=== PATIENT | female | born 1945 | race Caucasian/White ===

== ENCOUNTER 2017-03-16 11:59 | Inpatient (IN) | payer MEDICARE, OTHER ==
[~2017-03-16] VITALS: Ht 165.1 cm; Wt 110.0 kg
[2017-03-16] MEDS: niCARdipine-NS 0.1MG/ML DRIP 200 ML IV SCH (12:24)
--- NOTE | 2017-03-16 12:31 | ERA ---
ER Documentation Chief Complaint Date/Time DATE: 03/16/17 TIME: 12:23 Chief Complaint pt transfer from [facility] due brain bleed for continuity of care HPI 71 Was transferred to the emergency department from the local [place] facility for a higher level of care for neurosurgical intervention secondary to an intracranial hemorrhage. Patient was in her usual state of health and was last known well approximately 2 days ago which would be 03/14/2017 according to the transfer paperwork. Patient awoke this morning with new right-sided deficits and a headache. Patient was taken to [place] emergency department in [place] where a stroke workup demonstrated a hypertensive intrathalamic hemorrhage. Patient was stabilized on medication for blood pressure and was transferred to our facility for a neurosurgical higher level of care. Prior to transfer, neurosurgical consultation from the [place] facility indicated that there is no acute need for surgical intervention. Upon arrival, I have reviewed the patient's records from the [place] facility and evaluated the patient. ROS All systems reviewed and are negative except as per history of present illness. Allergies Allergies: Coded Allergies: No Known Allergy (Unverified , 08/05/14) PMhx/Soc Hx Cardiac Disorders: Yes (HTN ) Hx Miscellaneous Medical Probl: Yes (SCIATICA ) Hx Alcohol Use: No Hx Substance Use: No Hx Tobacco Use: No FmHx Noncontributory for chief complaint with supportive family at bedside Physical Exam Vitals Vital Signs Date Time Temp Pulse Resp B/P Pulse Ox O2 Delivery O2 Flow Rate FiO2 03/16/17 12:10 98.2 72 18 163/88 99 Physical Exam GENERAL: Patient is an elderly female resting quietly in her gurney. HEENT: Pupils equal, round, and reactive to light. EOMI. There is no scleral icterus. NECK: C-spine is soft and supple, there is no meningismus. There is no cervical lymphadenopathy. LUNGS: Clear to auscultation bilaterally. There are no rales, wheezes or rhonchi. HEART: Regular rate and rhythm, no murmurs, clicks, rubs or gallops. ABDOMEN: Soft, non-tender, non-distended. There are bowel sounds in all four quadrants. No rebound or guarding. EXTREMITIES: There is no peripheral cyanosis or edema. No focal swelling or erythema. NEURO: Patient is awake, alert, oriented. She is somewhat slow to respond. She has a GCS of 15. Her pupils are midrange, equal round and reactive to light. Face demonstrates a right-sided facial droop. Tongue is midline. Gag reflex is maintained. Motor strength is diminished in all 4 extremities but appears to be grossly nonfocal with possible slight right-sided upper extremity weakness when compared to the left. Both lower extremities appear to be normal and nonfocal. Sensory examination is grossly nonfocal bilaterally. SKIN: There is no apparent rash or petechiae. HEME/LYMPHATIC: There is no evidence of excessive bruising or lymphedema. PSYCHIATRIC: The patient does not appear anxious or depressed. Results 24 hrs Current Medications Medications (Trade) Dose Ordered Sig/Roseanna Route PRN Reason Start Time Stop Time Status Last Admin Dose Admin Nicardipine HCl (Cardene Iv) 200 ml @ 50 mls/hr TITRATE IV 03/16/17 12:30 Procedures/MDM Patient was taken to a room, seen and evaluated. Comfort measures were initiated. Diagnostic tests were ordered and reviewed. 3 LEAD RHYTHM STRIP: Normal sinus rhythm without ectopy EK lead EKG interpreted by myself: Rate/rhythm: Normal sinus rhythm [place]/intervals: Normal Ischemia: Nonspecific ST and T-wave changes with no ST elevation Impression: Nonspecific EKG RADIOLOGY: reviewed with the radiologist CONSULTATION: hospitalist was notified for admission., neurosurgical consultation was obtained. A repeat CT head was requested and ordered. REEVALUATION: Blood pressure required IV medications for control MEDICAL DECISION MAKIN-year-old female presents the emergency department with a hypertensive intracranial hemorrhage. Patient will be admitted for blood pressure control, neurosurgical consultation, further observation and management and care. CRITICAL CARE: Time:>35 minutes Patient has a significant chance of clinical deterioration Treatments/Evaluations: Close monitoring and treatment of unstable vital signs, cardiorespiratory, and neurologic status, while maintaining tight balance of fluid, respiratory, and cardiac interventions. Departure Diagnosis: Primary Impression: Intracranial hemorrhage Additional Impression: Hypertension Condition: Critical ALBINO HILTON Mar 16, 2017 12:31
[2017-03-16 13:12] LABS: BASOPHILS % 0.4 % (0.0-2.0); EOSINOPHILS # 0.1 10^3/ul (0.0-0.5); EOSINOPHILS % 1.1 % (0.0-7.0); HEMOGLOBIN 11.1 g/dl (12.0-16.0); LYMPHOCYTES # 2.5 10^3/ul (0.8-2.9); LYMPHOCYTES % 27.9 % (15.0-51.0); MEAN CORPUSCULAR HEMOGLOBIN 27.8 pg (29.0-33.0); MEAN CORPUSCULAR HGB CONC 31.7 g/dl (32.0-37.0); MEAN CORPUSCULAR VOLUME 87.7 fl (82.0-101.0); MEAN PLATELET VOLUME 10.4 fl (7.4-10.4); MONOCYTE # 0.6 10^3/ul (0.3-0.9); MONOCYTES % 6.6 % (0.0-11.0); NEUTROPHILS % 63.6 % (39.0-77.0); PLATELET COUNT 242 10^3/UL (140-415); RED BLOOD COUNT 3.99 10^6/ul (4.20-5.40); RED CELL DISTRIBUTION WIDTH 14.9 % (11.5-14.5); WHITE BLOOD COUNT 8.9 10^3/ul (4.8-10.8)
[2017-03-16 13:24] LABS: ALBUMIN 3.6 g/dl (3.3-4.9); ALBUMIN/GLOBULIN RATIO 1.02; BILIRUBIN,INDIRECT 0.2 mg/dl (0-1.1); BILIRUBIN,TOTAL 0.2 mg/dl (0.2-1.3); CALCIUM 9.1 mg/dl (8.4-10.2); CREATININE 1.27 mg/dl (0.44-1.00); INR 1.08; POTASSIUM 4.2 mmol/L (3.5-5.1); PT RATIO 1.1; TOTAL PROTEIN 7.1 g/dl (6.1-8.1)
--- NOTE | 2017-03-16 15:05 | RADRPT ---
PROCEDURE: CT brain without IV contrast. CLINICAL INDICATION: Weakness/headache. TECHNIQUE: CT examination of the brain was performed on a 64-slice multidetector scanner. The pat ient was examined without IV contrast. Sagittal and coronal reformatted images were made. The imag es were reviewed on a PACS workstation. Total radiation dose: Total CTDIvol: 41 mGy. Total DLP: 665 mGy-cm. One or more of the following dose reduction techniques were used: automated exposure control, adjustment of the mA and/or kV acc ording to patient size, or use of iterative reconstruction technique COMPARISON: None available. FINDINGS: There is 2.2 cm x 0.6 cm x 1.3 cm( AP x CC x TR) acute hemorrhage in the left thalamus with minimal surrounding edema and minimal mass effect to the adjacent midline. There is a tiny acute hemorrhage in the right external capsule. There is mild cerebral atrophy. There is mild periventricular low density white matter changes, lik ricardo microvascular ischemic changes. The stokes/white matter differentiation is well preserved. There is no other abnormal intra-axial high, low density lesion, suggesting tumor, infarct, bleeding, av malformation or inflammatory mass. No subdural or epidural hematoma. The visualized paranasal sinuses and mastoid air cells are clear. The orbits are unremarkable. The calvarium is intact. No scalp abnormalities are seen. IMPRESSION: 1. 2.2 cm x 0.6 cm x 1.3 cm( AP x CC x TR) acute hemorrhage in the left thalamus with minimal surro unding edema and minimal mass effect to the adjacent midline. 2. A tiny acute hemorrhage in the right external capsule. 3. Mild cerebral atrophy. 4. Mild periventricular low density white matter changes, likely microvascular ischemic changes. 5. Critical finding was given to the ER physician, Larissa Dent, 03:00 p.m., 03/16/2017. RPTAT: GG .Ty Alonso MD, Date Time Electronically viewed and signed by .Ty Alonso MD, on 03/16/2017 15:05 .Y/
[2017-03-16] MEDS ORDERED: IBUP-1542 PO (15:09)
[2017-03-16] MEDS ORDERED: LORA0.5T PO (15:09)
[2017-03-16] MEDS ORDERED: ISOS30TA5 PO (15:10)
[2017-03-16] MEDS ORDERED: FAMO20TA18 PO (15:10)
[2017-03-16] MEDS ORDERED: CARV3.1260 PO (15:11)
[2017-03-16] MEDS ORDERED: RANO500T2 PO (15:11)
--- NOTE | 2017-03-16 15:34 | HP ---
Date/Time of Note Date/Time of Note DATE: 03/16/17 TIME: 15:30 Assessment/Plan VTE Prophylaxis VTE Prophylaxis Intervention: contraindicated Assessment/Plan Chief Complaint/Hosp Course 89 yo female with h/o hypertension presenting with spotnaneous acute intracerebral hemorrhage Acute intracerebral hemorrhage: - BP < 160 - Repeat CT for change in neuro exam, serial exams - Hold all blood thinners/anti-platelets - Dr Stark and Dr Fish involved with case Hypertension: - Nicardipine to normotension KAMILA vs CKD: - Trend creatinine ICU care for now Problems: HPI/ROS Admit Date/Time Admit Date/Time Hx of Present Illness 71 yo female wtih h/o hypertension who was transferred from [facility] ED for evaluation of ICH Patient in [facility] until this AM. Sitting on the cough, became minimally responsive to verbal stimuli per family at bedside. Was alert, breathing normally etc, comfortable appearing, but stopped respondign to speech appropriately. Brought to ED and foudn to have ICH without mass effect Transferred to our ED where NCHCT shows the same She complains of headache and b/l buzzing in her ears. Having some expressive aphasia it seems Home meds not clear but per family she takes BP meds only. No blood thinners or anti-platelets. Family also says she is genreally nonadherent to meds ROS Constitutional: improved, no complaints Eyes: no complaints ENT: no complaints Respiratory: no complaints Cardiovascular: no complaints Gastrointestinal: no complaints Genitourinary: no complaints Musculoskeletal: no complaints Skin: no complaints Neurologic: no complaints Endocrine: no complaints Lymphatic: no complaints Psychological: nl mood/affect, no complaints Immunologic: no complaints PMH/Family/Social Past Medical History Medical History: hypertension Past Surgical History Past Surgical Hx: noncontributory Family History Significant Family History: no pertinent family hx Social History Smoking Status: Never smoker Exam/Review of Systems Vital Signs Vitals Vital Signs Date Time Temp Pulse Resp B/P Pulse Ox O2 Delivery O2 Flow Rate FiO2 03/16/17 14:00 70 20 168/83 99 Nasal Cannula 2.0 03/16/17 12:10 98.2 Labs Result Diagram: 03/16/17 1250 03/16/17 1250 Medications Medications Current Medications Nicardipine HCl (Cardene Iv) 200 ml @ 50 mls/hr TITRATE IV Last administered on 03/16/17t 12:24; Admin Dose 50 MLS/HR; Start 03/16/17 at 12:30 SHYAM BAILON MD Mar 16, 2017 15:34
[2017-03-16] MEDS ORDERED: NACL 0.9% 3 ML SYG IV SCH (16:00)
[2017-03-16 20:40] VITALS: TEMP 98.2
--- NOTE | 2017-03-16 23:40 | CONS ---
DATE OF ADMISSION: 03/16/2017 DATE OF CONSULTATION: 03/16/2017 Neurological Consultation Thank you, Dr. Suarez, for your kind referral for evaluation of intracerebral hemorrhage. The patient is a 78-year-old lady with a past medical history of hypertension, not compliant with medications, who was intermittently confused since this morning. The family brought her to the emergency room and CAT scan was done and shows a left thalamic 2.2 cm x 1.3 cm intracerebral hemorrhage with minimal surrounding edema and minimal mass effect, also a tiny acute hemorrhage in the right external capsule was seen. The patient has been stable since admission. She was placed on nicardipine to keep systolic blood pressure below 140. The patient complains of mild headache since the morning. LABORATORY: Shows anemia 11.1 hemoglobin, 35.2, hematocrit. Normal WBCs and platelets. Sodium 145, creatinine 1.27, BUN 18, normal PT and PTT. MEDICATION: Nicardipine. SOCIAL HISTORY: No alcohol, tobacco, or drug use. FAMILY HISTORY: Not contributory. ALLERGIES: NONE. PHYSICAL EXAMINATION: VITAL SIGNS: Today, 98.2 temperature, 80 pulse, 18 respiration, 137/77 blood pressure. GENERAL APPEARANCE: Not in acute distress. Lying in bed. HEENT: Normocephalic atraumatic head. NECK: No carotid bruits. No thyromegaly. LUNGS: Clear to auscultation bilaterally. HEART: Normal cardiac rhythm and sounds. ABDOMEN: Soft, nontender. EXTREMITIES: No cyanosis, clubbing, or edema. NEURO: She is awake, alert, and oriented x2 with fluent speech. Follows commands. Normal naming. ER nurse was interpreting, pt speaks [place]er. Present response to visual threat bilaterally. Pupils about 2 mm bilaterally and sluggishly reactive. Extraocular movements intact without nystagmus. Symmetrical face. Preserved facial strength and sensation. Tongue was in midline. Palate elevates symmetrically. Motor strength examination seemed to be preserved in all extremities, possibly trace of pronator drift noticed but normal strength on manual strength testing. Normal bulk and tone. Sensory examination grossly intact to light touch and pain. Deep tendon reflexes 2+ upper extremities, absent knee jerks, 2+ ankle jerks, equivocal response to plantar stimulation bilaterally. Coordination preserved on [id number] testing. No dysmetria or tremor. Gait was not assessed. ASSESSMENT: Acute intracerebral hemorrhage, likely hypertensive. Given there is a small possible hemorrhage on the other side and for better evaluation if it is a hemorrhage or not and to see if there is no underlying structural abnormality responsible, we will obtain MRI with contrast tomorrow. Keep patient normotensive at least below 150/90. Keep patient euglycemic. No complaints of dysarthria or dysphagia. We will get the patient seen by physical therapist. Dictated By: Gentry Culver MD /claudio/tayla /Document#: [id number] DIOGO
[2017-03-17] VITALS (62 sets, daily range): BP systolic 107–142; BP diastolic 46–92; PULSE 74–90; RESP 13–26; Ht 165.1 cm; Wt 110.0 kg
[2017-03-17] MEDS: niCARdipine-NS 0.1MG/ML DRIP 200 ML IV SCH ×2 (02:35→06:45)
[2017-03-17] MEDS ORDERED: SOD CHLORIDE 0.45% 1,000 ML IV SCH (04:30)
[2017-03-17 05:42] LABS: BASOPHIL # 0.1 10^3/ul (0.0-0.1); BASOPHILS % 0.6 % (0.0-2.0); EOSINOPHILS # 0.1 10^3/ul (0.0-0.5); HEMATOCRIT 39.7 % (37.0-47.0); HEMOGLOBIN 12.1 g/dl (12.0-16.0); LYMPHOCYTES % 22.4 % (15.0-51.0); MEAN CORPUSCULAR HEMOGLOBIN 26.7 pg (29.0-33.0); MEAN CORPUSCULAR HGB CONC 30.5 g/dl (32.0-37.0); MEAN CORPUSCULAR VOLUME 87.6 fl (82.0-101.0); MEAN PLATELET VOLUME 10.4 fl (7.4-10.4); MONOCYTE # 0.5 10^3/ul (0.3-0.9); NEUTROPHILS % 69.7 % (39.0-77.0); PLATELET COUNT 253 10^3/UL (140-415); RED BLOOD COUNT 4.53 10^6/ul (4.20-5.40); RED CELL DISTRIBUTION WIDTH 15.3 % (11.5-14.5)
[2017-03-17 06:04] LABS: CHOL/HDL RATIO 4.5 RATIO
[2017-03-17 06:22] LABS: ALBUMIN 3.5 g/dl (3.3-4.9); ALBUMIN/GLOBULIN RATIO 1.02; BILIRUBIN,INDIRECT 0.4 mg/dl (0-1.1); BILIRUBIN,TOTAL 0.4 mg/dl (0.2-1.3); CALCIUM 9.4 mg/dl (8.4-10.2); CREATININE 1.16 mg/dl (0.44-1.00); POTASSIUM 4.2 mmol/L (3.5-5.1); TOTAL PROTEIN 6.9 g/dl (6.1-8.1)
[2017-03-17 07:25] LABS: THYROID STIMULATING HORMONE 0.942 MIU/L (0.465-4.680)
[2017-03-17] MEDS ORDERED: niCARdipine 25 MG in SOD CHLORIDE 0.9% 250 ML IV SCH (10:30)
--- NOTE | 2017-03-17 13:20 | RADRPT ---
PROCEDURE: MR Brain without and with contrast. CLINICAL INDICATION: Hemorrhage, neurologic deficit TECHNIQUE: A high resolution MRI of the brain was performed utilizing the following sequences: Sag ittal and axial T1 weighted, axial T2 weighted, axial FLAIR, coronal GRE, and axial diffusion weight ed with ADC mapping. Images were reviewed high-resolution PACS workstation. Additional axial and co marlon post contrast images were obtained. 7 cc of Magnevist was administered intravenously without r eported complication. COMPARISON: Head CT yesterday FINDINGS: Left thalamic parenchymal hemorrhage measures 1.9 x 2.3 cm with surrounding edema. There is mass eff ect and narrowing of the third ventricle with 4-mm rightward midline shift. Smaller hemorrhage or ch ronic infarct with calcium deposition of the right external capsule. Scattered subcortical, deep, an d periventricular white matter T2-weighted/FLAIR hyperintensities are consistent with chronic microv ascular ischemic disease. Mild volume loss noted. No evidence of recent cortical infarct. Normal flow voids are visible in the proximal intracranial arteries suggesting their patency. The visualized paranasal sinuses and mastoids are grossly clear. No abnormal mass like parenchymal, dural or leptomeningeal enhancement. IMPRESSION: Left thalamic parenchymal hemorrhage with narrowing of the third ventricle with 4 mm rightward midli ne shift. Smaller hemorrhage or chronic infarct with calcium deposition of the right external capsule. Chronic microvascular disease and mild volume loss. No enhancing parenchymal mass identified. RPTAT: AA .Domingo Nunn MD, MD Date Time Electronically viewed and signed by .Domingo Nunn MD, on 03/17/2017 13:19 .T/
--- NOTE | 2017-03-17 17:41 | PN ---
Date/Time of Note Date/Time of Note DATE: 03/17/17 TIME: 17:31 Assessment/Plan VTE Prophylaxis VTE Prophylaxis Intervention: contraindicated Lines/Catheters IV Catheter Type (from Nrs): Peripheral IV Urinary Cath still in place: Yes Reason Cath still needed: urinary retention Assessment/Plan Chief Complaint/Hosp Course 89 yo female with h/o hypertension presenting with spotnaneous acute intracerebral hemorrhage Acute intracerebral hemorrhage: - Stable on MRI - Secondary prevention at this point Hypertension: - Reinstate home PB meds KAMILA vs CKD: - Trend creatinine Transfer to floor Problems: Subjective 24 Hr Interval Summary Free Text/Dictation MRI perfromed, shows acute thalamic hemorrhage Patient a bit improved today. Alert. Denies any weakness or localizing neurological symptoms Family happy with her progress. Feel she is mentating normally Exam/Review of Systems Vital Signs Vitals Vital Signs Date Time Temp Pulse Resp B/P Pulse Ox O2 Delivery O2 Flow Rate FiO2 03/17/17 16:15 78 20 121/64 98 03/17/17 11:45 98.7 03/17/17 08:00 Venturi Mask 2.0 Intake and Output 03/16/17 03/16/17 03/17/17 15:00 23:00 07:00 Intake Total 420 ml Output Total 500 ml Balance -80 ml Exam Alert, interactive, AOx3 A bit scare of speech but much more convesratn than yestrday CN II XII intact Strenght in tact throughout No ataxia FNF normal Sensation in tact No edema Heart sounds are regular, no murmurs Results Result Diagram: 03/17/17 0450 03/17/17 0450 Results 24 hrs Laboratory Tests Test 03/17/17 04:50 White Blood Count 9.0 Red Blood Count 4.53 Hemoglobin 12.1 Hematocrit 39.7 Mean Corpuscular Volume 87.6 Mean Corpuscular Hemoglobin 26.7 L Mean Corpuscular Hemoglobin Concent 30.5 L Red Cell Distribution Width 15.3 H Platelet Count 253 Mean Platelet Volume 10.4 Neutrophils % 69.7 Lymphocytes % 22.4 Monocytes % 6.0 Eosinophils % 1.0 Basophils % 0.6 Nucleated Red Blood Cells % 0.0 Neutrophils # (Manual) 6.3 Lymphocytes # 2.0 Monocytes # 0.5 Eosinophils # 0.1 Basophils # 0.1 Nucleated Red Blood Cells # 0.0 Sodium Level 142 Potassium Level 4.2 Chloride Level 108 Carbon Dioxide Level 29 Anion Gap 9 Blood Urea Nitrogen 14 Creatinine 1.16 H Glucose Level 102 Hemoglobin A1c 5.5 Calcium Level 9.4 Total Bilirubin 0.4 Direct Bilirubin 0.00 Indirect Bilirubin 0.4 Aspartate Amino Transf (AST/SGOT) 21 Alanine Aminotransferase (ALT/SGPT) 27 Alkaline Phosphatase 80 Total Protein 6.9 Albumin 3.5 Globulin 3.40 H Albumin/Globulin Ratio 1.02 Triglycerides Level 80 Cholesterol Level 196 LDL Cholesterol, Calculated 137 HDL Cholesterol 43 Cholesterol/HDL Ratio 4.5 Thyroid Stimulating Hormone (TSH) 0.942 Medications Medications Current Medications Carvedilol (Coreg) 3.125 mg BID PO ; Start 03/17/17 at 21:00 Famotidine (Pepcid) 20 mg DAILY PO ; Start 03/18/17 at 09:00 Isosorbide Mononitrate (Imdur) 30 mg DAILY PO ; Start 03/18/17 at 09:00 SHYAM BAILON MD Mar 17, 2017 17:41
[2017-03-17] MEDS: HYDROCODONE/APAP (5/325) TAB PO PRN (18:07)
--- NOTE | 2017-03-17 20:27 | CONS ---
Date/Time of Note Date/Time of Note DATE: 03/17/17 TIME: 10:00 Consultation Date/Type/Reason Admit Date/Time Hx of Present Illness Date of consultation: March 17, 2017 Requesting physician: Dr. Juan Snowden with the emergency department Consulting service: Neurosurgery This is a 71-year-old female with past medical history significant for hypertension who was found by her family members yesterday to become altered and not fully responsive and was subsequently transferred to a [facility] where she was found to have an intracranial hemorrhage and transferred to [facility] for further management. The patient is noncompliant with her blood pressure medications. It is not clear whether the patient actually had a loss of consciousness yesterday. He was initially complaining of some right-sided numbness and weakness but those symptoms appear to have resolved. The patient at the time of arrival was found to have elevated blood pressure and has subsequently been started on a Cardene drip that is still required to keep her blood pressure under control. She has Dutch speaking but am able to communicate with the patient with the help of her daughters were at bedside. Past medical history: Hypertension Allergies: No known drug allergies Medications: Patient's medications have been reviewed and noted in the chart. Review of systems: The patient denies chest pain, shortness of breath, double vision Social history: The patient denies use of alcohol, tobacco or illicit or recreational drugs. Physical examination: The patient is seen in the ICU next to her daughters. She is awake, alert and oriented 4. Her language appears to be fluent in Dutch. Her face is symmetric. Tongue is midline. Motor strength is minus out of 5 bilateral upper and lower extremities. Sensation to light touch is grossly normal bilateral upper and lower extremities. There is a slight right pronator drift. Gait testing has been deferred per patient request. Deep tendon reflexes are 2+ bilateral upper and lower extremity's. Imaging: The patient has received a CT of the head without contrast that shows a relatively small left thalamic hemorrhage with minimal local mass effect. There is also a subtle hyperdensity in the right external capsule area that may be related to a small hemorrhage. There is no significant midline shift. There is no gross intraventricular hemorrhage. There is no evidence of hydrocephalus. Basal cisterns are open. By report from the outside facility, the size of the hemorrhages appear to be stable when compared to the CT scan that was obtained at [facility]. Assessment/plan: Is a 71-year-old female with a spontaneous left thalamic and possible small right external capsule hemorrhage that is most likely related to uncontrolled hypertension. Fortunately, the patient's neurologic deficit seems to have near fully resolved. As of spoken in great detail to the patient's family, there is no acute neurosurgical intervention indicated. Since the repeat head CT appears to be relatively stable no further imaging of the head will be needed from a neurosurgical perspective unless the patient develops neurologic change. The consulted neurologist has ordered an MRI of the brain that is reasonable for further evaluation. Once the patient's blood pressure is stabilized further, the patient can be transferred from the intensive care unit from a neurosurgical perspective. Eyes: no complaints ENT: no complaints Respiratory: no complaints Cardiovascular: no complaints Gastrointestinal: no complaints Genitourinary: no complaints Musculoskeletal: no complaints Skin: no complaints Neurologic: no complaints Lymphatic: no complaints Psychological: nl mood/affect, no complaints Immunologic: no complaints KITTY SHELTON MD Mar 17, 2017 20:27
--- NOTE | 2017-03-17 22:54 | CONS ---
Date/Time of Note Date/Time of Note DATE: 03/17/17 TIME: 22:50 Consult Date/Type/Reason Admit Date/Time Mar 16, 2017 at 12:32 Initial Consult Date Subjective No events, BP controlled. MRI slightly larger left thalamic ICH, questionable tiny ICH vs ca on the right. Still [place] Objective Vital Signs Date Time Temp Pulse Resp B/P Pulse Ox O2 Delivery O2 Flow Rate FiO2 03/17/17 21:57 98.1 85 16 122/60 96 03/17/17 20:42 3.0 31 03/17/17 19:00 Nasal Cannula Intake and Output 03/16/17 03/16/17 03/17/17 15:00 23:00 07:00 Intake Total 420 ml Output Total 500 ml Balance -80 ml Results/Medications Result Diagram: 03/17/17 0450 03/17/17 0450 Results 24 hrs Laboratory Tests Test 03/17/17 04:50 White Blood Count 9.0 Red Blood Count 4.53 Hemoglobin 12.1 Hematocrit 39.7 Mean Corpuscular Volume 87.6 Mean Corpuscular Hemoglobin 26.7 L Mean Corpuscular Hemoglobin Concent 30.5 L Red Cell Distribution Width 15.3 H Platelet Count 253 Mean Platelet Volume 10.4 Neutrophils % 69.7 Lymphocytes % 22.4 Monocytes % 6.0 Eosinophils % 1.0 Basophils % 0.6 Nucleated Red Blood Cells % 0.0 Neutrophils # (Manual) 6.3 Lymphocytes # 2.0 Monocytes # 0.5 Eosinophils # 0.1 Basophils # 0.1 Nucleated Red Blood Cells # 0.0 Sodium Level 142 Potassium Level 4.2 Chloride Level 108 Carbon Dioxide Level 29 Anion Gap 9 Blood Urea Nitrogen 14 Creatinine 1.16 H Glucose Level 102 Hemoglobin A1c 5.5 Calcium Level 9.4 Total Bilirubin 0.4 Direct Bilirubin 0.00 Indirect Bilirubin 0.4 Aspartate Amino Transf (AST/SGOT) 21 Alanine Aminotransferase (ALT/SGPT) 27 Alkaline Phosphatase 80 Total Protein 6.9 Albumin 3.5 Globulin 3.40 H Albumin/Globulin Ratio 1.02 Triglycerides Level 80 Cholesterol Level 196 LDL Cholesterol, Calculated 137 HDL Cholesterol 43 Cholesterol/HDL Ratio 4.5 Thyroid Stimulating Hormone (TSH) 0.942 Medications Current Medications Carvedilol (Coreg) 3.125 mg BID PO Last administered on 03/17/17t 21:15; Admin Dose 3.125 MG; Start 03/17/17 at 21:00 Famotidine (Pepcid) 20 mg DAILY PO ; Start 03/18/17 at 09:00 Isosorbide Mononitrate (Imdur) 30 mg DAILY PO ; Start 03/18/17 at 09:00 Acetaminophen/ Hydrocodone Bitart ([place] (5/325)) 1 tab Q3H PRN PO PAIN Last administered on 03/17/17t 18:07; Admin Dose 1 TAB; Start 03/17/17 at 18:00 Assessment/Plan Chief Complaint/Hosp Course NEURO: She is awake, alert, and oriented x2 with fluent speech. Follows commands. Normal naming. Present response to visual threat bilaterally. Pupils about 2 mm bilaterally and sluggishly reactive. Extraocular movements intact without nystagmus. Symmetrical face. Preserved facial strength and sensation. Tongue was in midline. Palate elevates symmetrically. Motor strength examination 4/5 RUE trace of pronator drift noticed. Normal bulk and tone. Sensory examination grossly intact to light touch and pain. Deep tendon reflexes 2+ upper extremities, absent knee jerks, 2+ ankle jerks, equivocal response to plantar stimulation bilaterally. Coordination preserved on [id number] testing. No dysmetria or tremor. Gait was not assessed. ASSESSMENT: Acute intracerebral hemorrhage, likely hypertensive. Keep patient normotensive at least below 150/90. Keep patient euglycemic. Repeat CT tomorrow. PT eval Problems: VICKIE LAMB MD Mar 17, 2017 22:54
[2017-03-18] VITALS (11 sets, daily range): BP systolic 104–135; BP diastolic 58–80; PULSE 70–83; RESP 16–18
[2017-03-18] MEDS: ISOSORBIDE MONONITRATE(SR)30 MG TAB PO SCH (09:03)
[2017-03-18] MEDS: FAMOTIDINE 20 MG TAB PO SCH (09:03)
--- NOTE | 2017-03-18 11:06 | CONS ---
Date/Time of Note Date/Time of Note DATE: 03/18/17 TIME: 11:00 Consult Date/Type/Reason Admit Date/Time Mar 16, 2017 at 12:32 Initial Consult Date 03/18/17 Type of Consultation: Neurology Reason for Consultation ICH Subjective remains stable overnight no neurologic decline Objective Vital Signs Date Time Temp Pulse Resp B/P Pulse Ox O2 Delivery O2 Flow Rate FiO2 03/18/17 08:37 79 03/18/17 07:44 98.3 18 134/80 97 03/17/17 21:15 Nasal Cannula 2.0 03/17/17 20:42 31 Intake and Output 03/17/17 03/17/17 03/18/17 15:00 23:00 07:00 Intake Total 560 ml 250 ml 140 ml Output Total 390 ml 500 ml 400 ml Balance 170 ml -250 ml -260 ml Exam NEURO: She is awake, alert, and oriented limited verbalization, she is arousable to voice and Follows commands. Normal naming. Present response to visual threat bilaterally. Pupils about 2 mm bilaterally and sluggishly reactive. Extraocular movements intact without nystagmus. Symmetrical face. Preserved facial strength and sensation. Tongue was in midline. Palate elevates symmetrically. Motor strength examination 4/5 RUE trace of pronator drift noticed. Normal bulk and tone. Sensory examination grossly intact to light touch and pain. Deep tendon reflexes 2+ upper extremities, absent knee jerks, 2+ ankle jerks, equivocal response to plantar stimulation bilaterally. Coordination preserved on goelti-yw-lnongl testing. No dysmetria or tremor. Gait was not assessed. Results/Medications Result Diagram: 03/17/17 0450 03/17/17 0450 Medications Current Medications Carvedilol (Coreg) 3.125 mg BID PO Last administered on 03/18/17 09:03; Admin Dose 3.125 MG; Start 03/17/17 at 21:00 Famotidine (Pepcid) 20 mg DAILY PO Last administered on 03/18/17 09:03; Admin Dose 20 MG; Start 03/18/17 at 09:00 Isosorbide Mononitrate (Imdur) 30 mg DAILY PO Last administered on 03/18/17 09: 03; Admin Dose 30 MG; Start 03/18/17 at 09:00 Acetaminophen/ Hydrocodone Bitart ([place] (5/325)) 1 tab Q3H PRN PO PAIN Last administered on 03/17/17t 18:07; Admin Dose 1 TAB; Start 03/17/17 at 18:00 Assessment/Plan Chief Complaint/Hosp Course 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 Smaller hemorrhage or chronic infarct with calcium deposition of the right external capsule. Chronic microvascular disease and mild volume loss. No enhancing parenchymal mass identified. -recommend frequent neurochecks -SBP <140 -avoid antiplatelets -neurosurgery consulted, should there be any decline in her exam STAT Head CT to evaluate for HCP -PT/OT/Speech Problems: KATE BENJAMIN MD Mar 18, 2017 11:06
--- NOTE | 2017-03-18 12:15 | RADRPT ---
PROCEDURE: CT Brain without contrast. CLINICAL INDICATION: Hemorrhage, Neurologic deficit TECHNIQUE: A CT of the brain was performed on multidetector high-resolution CT scanner utilizing a xial sections from the skull base through the vertex without contrast. One or more of the following dose reduction techniques were used: Automated exposure control, Adjustment of the mA and/or kV acc ording to patient size, and/or use of iterative reconstruction technique. DOSE: CTDI = 42 mGy and the DLP = 630 mGy-cm. COMPARISON: Head CT 03/16/2017 FINDINGS: No change in size of the left thalamic parenchymal hemorrhage with 4 mm rightward midline shift. No evidence of new bleeding or progressive mass effect. Small hemorrhage or chronic infarct with calciu m deposition in the right external capsule is unchanged. Patchy hypoattenuation of the cerebral white matter is most consistent with chronic microvascular is chemic changes. Stable ventricle size. No significant opacification of the visualized paranasal sinuses or mastoids. IMPRESSION: No change in size of the left thalamic parenchymal hemorrhage with 4 mm rightward midline shift. Small hemorrhage or chronic infarct with calcium deposition in the right external capsule is unchang ed. No evidence of new bleeding or progressive mass effect. RPTAT: AA .Domingo Nunn MD, MD Date Time Electronically viewed and signed by .Domingo Nunn MD, MD on 03/18/2017 12:14 .T/
[2017-03-18] MEDS: HYDROCODONE/APAP (5/325) TAB PO PRN (12:39)
--- NOTE | 2017-03-18 15:31 | RADRPT ---
Vent Rate: 81 bpm RR Interval: 0 msec [place] Interval: 152 msec QRS Duration: 66 msec QT Interval: 298 msec QTC Interval: 346 msec P-R-T [place]: 64 - 41 - 0 degrees Sinus rhythm with premature supraventricular complexes Low voltage QRS Septal infarct , age undetermined Abnormal ECG Electronically Signed By: Angel Perkins [id number]
--- NOTE | 2017-03-18 17:27 | PN ---
Date/Time of Note Date/Time of Note DATE: 03/18/17 TIME: 17:21 Assessment/Plan VTE Prophylaxis VTE Prophylaxis Intervention: contraindicated Lines/Catheters IV Catheter Type (from Nrsg): Saline Lock Central line still needed: No Urinary Cath still in place: Yes Reason Cath still needed: urinary retention Assessment/Plan Chief Complaint/Hosp Course 89 yo female with h/o hypertension presenting with spotnaneous acute intracerebral hemorrhage Acute intracerebral hemorrhage: - Stable on MRI - Secondary prevention at this point, BP control - PT/OT Hypertension: - Reinstate home BP meds Chest pain: - Very reproducible, likely chostochondritis - EKG w q wavs, check TTE KAMILA vs CKD: - Trend creatinine Discharge to [facility] Problems: Subjective 24 Hr Interval Summary Free Text/Dictation Complained of SSCP today, tropnoin negative. Very reproducible on exam. troponin negative No further neruologic symptoms Family is happy w her progress Exam/Review of Systems Vital Signs Vitals Vital Signs Date Time Temp Pulse Resp B/P Pulse Ox O2 Delivery O2 Flow Rate FiO2 03/18/17 16:30 70 03/18/17 15:45 98.0 18 121/62 95 03/18/17 07:55 Nasal Cannula 2.0 03/17/17 20:42 31 Intake and Output 03/17/17 03/17/17 03/18/17 15:00 23:00 07:00 Intake Total 560 ml 250 ml 140 ml Output Total 390 ml 500 ml 400 ml Balance 170 ml -250 ml -260 ml Exam Comfortable appearing Alert, interactive, Ox3 Soemwhat scarce of speech Sternght intact throughout + tenderness to palpation fo chest wall Results Result Diagram: 03/17/17 0450 03/17/17 0450 Results 24 hrs Laboratory Tests Test 03/18/17 13:49 Troponin I < 0.012 Medications Medications Current Medications Carvedilol (Coreg) 3.125 mg BID PO Last administered on 03/18/17 09:03; Admin Dose 3.125 MG; Start 03/17/17 at 21:00 Famotidine (Pepcid) 20 mg DAILY PO Last administered on 03/18/17 09:03; Admin Dose 20 MG; Start 03/18/17 at 09:00 Isosorbide Mononitrate (Imdur) 30 mg DAILY PO Last administered on 03/18/17 09: 03; Admin Dose 30 MG; Start 03/18/17 at 09:00 Acetaminophen/ Hydrocodone Bitart ([place] (5/325)) 1 tab Q3H PRN PO PAIN Last administered on 03/18/17 12:39; Admin Dose 1 TAB; Start 03/17/17 at 18:00 SHYAM BAILON MD Mar 18, 2017 17:27
[2017-03-18] MEDS ORDERED: AL HYDROX/MG HYDROX/SIMETH 30 ML CUP PO PRN (21:00)
[2017-03-18] MEDS ORDERED: FAMOTIDINE 20 MG TAB PO SCH (21:00)
[2017-03-18] MEDS: ATORVASTATIN 20 MG TAB PO SCH (21:12)
[2017-03-19] VITALS (13 sets, daily range): BP systolic 129–160; BP diastolic 60–82; PULSE 63–81; RESP 18–19
[2017-03-19] MEDS: DOCUSATE SODIUM 100 MG CAP PO SCH ×2 (09:27→20:32)
[2017-03-19] MEDS: ISOSORBIDE MONONITRATE(SR)30 MG TAB PO SCH (09:27)
[2017-03-19] MEDS: POLYETHYLENE GLYCOL 17 GM PACKET PO SCH (09:27)
[2017-03-19] MEDS: FAMOTIDINE 20 MG TAB PO SCH (09:27)
--- NOTE | 2017-03-19 09:51 | CONS ---
Date/Time of Note Date/Time of Note DATE: 03/19/17 TIME: 09:50 Consult Date/Type/Reason Admit Date/Time Mar 16, 2017 at 12:32 Initial Consult Date 03/18/17 Type of Consultation: Neurology Reason for Consultation Thalamic ICH Subjective remains stable overnight no issues Objective Vital Signs Date Time Temp Pulse Resp B/P Pulse Ox O2 Delivery O2 Flow Rate FiO2 03/19/17 08:00 75 03/19/17 07:19 98.6 18 160/82 96 03/18/17 22:37 3.0 03/18/17 20:00 Nasal Cannula 03/17/17 20:42 31 Intake and Output 03/18/17 03/18/17 03/19/17 14:59 22:59 06:59 Intake Total 700 ml 400 ml Output Total 360 ml 600 ml Balance 340 ml -200 ml Exam NEURO: She is awake, alert, and oriented limited verbalization, she is arousable to voice and Follows commands. Normal naming. Present response to visual threat bilaterally. Pupils about 2 mm bilaterally and sluggishly reactive. Extraocular movements intact without nystagmus. Symmetrical face. Preserved facial strength and sensation. Tongue was in midline. Palate elevates symmetrically. Motor strength examination 4/5 RUE trace of pronator drift noticed. Normal bulk and tone. Sensory examination grossly intact to light touch and pain. Deep tendon reflexes 2+ upper extremities, absent knee jerks, 2+ ankle jerks, equivocal response to plantar stimulation bilaterally. Coordination preserved on zegzci-rb-rumhed testing. No dysmetria or tremor. Gait was not assessed. Results/Medications Result Diagram: 03/17/17 0450 03/17/17 0450 Results 24 hrs Laboratory Tests Test 03/18/17 13:49 Troponin I < 0.012 Medications Current Medications Carvedilol (Coreg) 3.125 mg BID PO Last administered on 03/19/17 09:27; Admin Dose 3.125 MG; Start 03/17/17 at 21:00 Famotidine (Pepcid) 20 mg DAILY PO Last administered on 03/19/17 09:27; Admin Dose 20 MG; Start 03/18/17 at 09:00 Isosorbide Mononitrate (Imdur) 30 mg DAILY PO Last administered on 03/19/17 09: 27; Admin Dose 30 MG; Start 03/18/17 at 09:00 Acetaminophen/ Hydrocodone Bitart ([place] (5/325)) 1 tab Q3H PRN PO PAIN Last administered on 03/18/17 12:39; Admin Dose 1 TAB; Start 03/17/17 at 18:00 Atorvastatin Calcium (Lipitor) 20 mg HS PO Last administered on 03/18/17 21:12 ; Admin Dose 20 MG; Start 03/18/17 at 21:00 Al Hydrox/Mg Hydrox/Simethicone (Mag-Al Plus) 30 ml Q4H PRN PO GASTROINTESTINAL UPSET Last administered on 03/18/17 21:13; Admin Dose 30 ML; Start 03/18/17 at 21:00 Docusate Sodium (Colace) 100 mg BID PO Last administered on 03/19/17 09:27; Admin Dose 100 MG; Start 03/19/17 at 09:00 Polyethylene Glycol (Miralax) 17 gm DAILY PO Last administered on 03/19/17 09: 27; Admin Dose 17 GM; Start 03/19/17 at 09:00 Assessment/Plan Chief Complaint/Hosp Course 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 Smaller hemorrhage or chronic infarct with calcium deposition of the right external capsule. Chronic microvascular disease and mild volume loss. No enhancing parenchymal mass identified. -recommend frequent neurochecks -SBP <140 -avoid antiplatelets -neurosurgery consulted, should there be any decline in her exam STAT Head CT to evaluate for HCP -PT/OT/Speech - Acute Rehab planning Problems: KATE BENJAMIN MD Mar 19, 2017 09:51
--- NOTE | 2017-03-19 13:38 | PDOCDIS ---
Discharge Instructions DIAGNOSIS Discharge Diagnosis Acute intracerebral hemorrhage CONDITION Patient Condition: Good HOME CARE INSTRUCTIONS: Special Diet: Regular FOLLOW UP/APPOINTMENTS Follow-up Plan Follow up with your primary doctor as soon as you can. It is extermely important to avoid taking and aspirin or blood thinners for the near future. It is also very important to ensure you blood pressure is well controlled for the rest of your life to avoid further stroke SHYAM BAILON MD Mar 19, 2017 13:38
--- NOTE | 2017-03-19 17:04 | DS ---
Date/Time of Note Date/Time of Note DATE: 03/19/17 TIME: 17:03 Discharge Summary Admission/Discharge Info Admit Date/Time Mar 16, 2017 at 12:32 Discharge Date/Time Discharge Diagnosis Acute intracerebral hemorrhage Patient Condition: Good Hx of Present Illness 71 yo female wtih h/o hypertension who was [facility] ED for evaluation of ICH Patient in [facility] until this AM. Sitting on the cough, became minimally responsive to verbal stimuli per family at bedside. Was alert, breathing normally etc, comfortable appearing, but stopped respondign to speech appropriately. Brought to ED and foudn to have ICH without mass effect Transferred to our ED where NCHCT shows the same She complains of headache and b/l buzzing in her ears. Having some expressive aphasia it seems Home meds not clear but per family she takes BP meds only. No blood thinners or anti-platelets. Family also says she is genreally nonadherent to meds Hospital Course Patient was found to have a left thalamic parenchymal hemorrhage with narrowing of the third ventricle with 4 mm rightward midline shift. Smaller hemorrhage or chronic infarct with calcium deposition of the right external capsule. Chronic microvascular disease and mild volume loss. No enhancing parenchymal mass identified. Findings were stable on repeat exam. Her BP was conrolled with home dose of Carvedilol. Antiplatelets and AC were held. MInimal neurologic deficits remained. She was discharged to [facility] for further physcial therapy Home Meds Reported Medications Ranolazine* (Ranexa*) 500 Mg Tab.sr.12h, 500 MG PO Q12, TAB 03/16/17 Carvedilol* (Carvedilol*) 3.125 Mg Tablet, 3.125 MG PO BID, #60 TAB 03/16/17 Isosorbide Mononitrate* (Isosorbide Mononitrate*) 30 Mg Tab.er.24h, 30 MG PO DAILY, TAB 03/16/17 Famotidine* (Famotidine*) 20 Mg Tablet, 20 MG PO DAILY, #30 TAB 03/16/17 Ibuprofen* (Ibuprofen*) 600 Mg Tablet, 600 MG PO BID Y for PRN, TAB 03/16/17 Lorazepam* (Lorazepam*) 0.5 Mg Tablet, 0.5 MG PO BID Y for ANXIETY, TAB 03/16/17 Primary Care Provider Not On Staff Doctor SHYAM BAILON MD Mar 19, 2017 17:04
[2017-03-19] MEDS: ATORVASTATIN 20 MG TAB PO SCH (20:32)
[2017-03-20] VITALS (7 sets, daily range): BP systolic 129–143; BP diastolic 62–71; PULSE 68–78; RESP 18–20
[2017-03-20] MEDS: FAMOTIDINE 20 MG TAB PO SCH (09:34)
[2017-03-20] MEDS: ISOSORBIDE MONONITRATE(SR)30 MG TAB PO SCH (09:34)
[2017-03-20] MEDS: DOCUSATE SODIUM 100 MG CAP PO SCH (09:35)
[2017-03-20] MEDS: POLYETHYLENE GLYCOL 17 GM PACKET PO SCH (09:35)
--- NOTE | 2017-03-20 11:07 | RADRPT ---
Echocardiogram Report Patient Name: JAMES BISHOP Gender: Female Date: 1945 Study Date: 19-Mar-2017 Entry Level Software Developer: Chad [facility] Location: 506 Ref. Physician: SHYAM BAILON Quality: Technically Difficult Study Procedures: Transthoracic echocardiogram with complete 2D, M-Mode, and doppler examination. Indications: Congestive Heart Failure. 2D/M Mode Doppler Measurement Value Normal Ranges Measurement Value Normal Ranges LVIDd 2D 4.9 3.5 - 5.6 cm AV Peak Efra 1.8 m/sec LVIDs 2D 3.5 2.1 - 4.1 cm AV Peak PG 13.0 mmHg FS 2D 28.7 % LVOT Peak Efra 1.0 m/sec LVPWd 2D 1.5 0.6 - 1.1 cm LVOT Peak PG 4.0 mmHg IVSd 2D 1.5 0.6 - 1.1 cm MV E Peak Efra 0.8 m/sec IVS/LVPW 2D 1.0 MV A Peak Efra 0.9 m/sec AoR Diam 2D 2.7 2.0 - 3.7 cm MV E/A 0.8 LA/Ao 2D 1 0 - 1 MV Decel Time 211 msec EDV 2D 116.0 cm3 MV E/A 0.8 ESV 2D 41.8 cm3 LA Dimen 2D 3.9 2.3 - 4.0 cm Findings Left Ventricle: Normal left ventricular systolic function. Normal left ventricular cavity size. Mild concentric left ventricular hypertrophy. Ejection fraction is visually estimated at 55 %. Tissue Doppler/Mitral Doppler indices are consistent with impaired relaxation (Stage I diastolic dysfunction). Right Ventricle: Normal right ventricular size. Normal right ventricular systolic function. Left Atrium: There is mild enlargement of left atrium. Right Atrium: The right atrium is normal in size. Mitral Valve: Mild mitral leaflet calcification. Mild mitral annular calcification. Trace mitral regurgitation. Aortic Valve: Normal appearance of the aortic valve. No significant aortic stenosis or insufficiency. Tricuspid Valve: Normal appearance of the tricuspid valve. Unable to obtain RVSP due to minimal presence of tricuspid regurgitation. There is trace tricuspid regurgitation. Pulmonic Valve: Pulmonic valve not well visualized. There is mild pulmonic regurgitation. Pericardium: Normal pericardium with no significant pericardial effusion. Aorta: Normal aortic root. IVC: Normal size and no respiratory collapse consistent with elevated right atrial pressure. Conclusions 1.Normal left ventricular systolic function. Normal left ventricular cavity size. Mild concentric left ventricular hypertrophy. Ejection fraction is visually estimated at 55 %. Tissue Doppler/Mitral Doppler indices are consistent with impaired relaxation (Stage I diastolic dysfunction). Electronically Signed By: Parag Duarte 20-Mar-2017 11:06:50 -0700 Patient Name: JAMES BISHOP Study Date: 19-Mar-2017 [id number]
== END 2017-03-20 13:00 | DRG 65 ==
LOC: E/R 11:59 → ICU 12:32 → E/R 14:49 → TEL 03-17 20:55
PROVIDERS: ADMIT Internal Medicine; ATTEND Internal Medicine
DX: I62.9 Nontraumatic intracranial hemorrhage, unspecified (principal); N17.9 Acute kidney failure, unspecified; R40.2413 Glasgow coma scale score 13-15, at hospital admission; I12.9 Hypertensive chronic kidney disease with stage 1 through stage 4 chronic kidney disease, or unspecified chronic kidney disease; N18.9 Chronic kidney disease, unspecified; Z91.14 Patient's other noncompliance with medication regimen; R29.810 Facial weakness; R47.01 Aphasia
CPT/HCPCS: 70450; 70553; 80053; 80061; 83036; 84443; 84484; 85025; 85610; 92610; 93005; 93306; 96365; 96366; 97110; 97116; 97162; 97166; 97530; J7050

== ENCOUNTER 2017-03-20 14:25 | Inpatient (IN) | payer MEDICARE, OTHER ==
[~2017-03-20] VITALS: Ht 165.1 cm; Wt 110.0 kg
[2017-03-20 13:30] VITALS: BP 113/64; PULSE 69; RESP 20
[~2017-03-20 14:25] MED LIST: CARV3.1260 PO; FAMO20TA18 PO; ISOS30TA5 PO; LORA0.5T PO; RANO500T2 PO
[2017-03-20 14:45] VITALS: Ht 165.1 cm; Wt 110.0 kg
[2017-03-20] MEDS ORDERED: NACL 0.9% 3 ML SYG IV SCH (15:00)
[2017-03-20] MEDS ORDERED: AL HYDROX/MG HYDROX/SIMETH 30 ML CUP PO PRN (15:30)
[2017-03-20] MEDS ORDERED: HYDROCODONE/APAP (5/325) TAB PO PRN (15:30)
[2017-03-20] MEDS ORDERED: BISACODYL 10 MG SUPP PR PRN (17:00)
[2017-03-20] MEDS ORDERED: LACTULOSE 30ML CUP PO PRN (17:00)
[2017-03-20] MEDS ORDERED: MAGNESIUM HYDROXIDE 30ML CUP PO PRN (17:00)
[2017-03-20 19:00] LABS: ADD UMIC YES; UR ASCORBIC ACID NEGATIVE (NEGATIVE); UR BACTERIA MANY /HPF (NONE SEEN); UR BILIRUBIN (Dip) NEGATIVE (NEGATIVE); UR BLOOD (Dip) NEGATIVE (NEGATIVE); UR CLARITY CLEAR (CLEAR); UR COLOR YELLOW (YELLOW); UR GLUCOSE (Dip) NEGATIVE (NEGATIVE); UR KETONES (Dip) NEGATIVE (NEGATIVE); UR LEUKOCYTE ESTERASE (Dip) NEGATIVE Leu/ul (NEGATIVE); UR MUCUS MANY /HPF (NONE SEEN); UR NITRITE (Dip) POSITIVE (NEGATIVE); UR RBC 0 /HPF (0-5); UR SPECIFIC GRAVITY (Dip) 1.017 (1.003-1.030); UR SQUAMOUS EPITHELIAL CELL FEW /HPF (FEW); UR TOTAL PROTEIN (Dip) NEGATIVE (NEGATIVE); UR UROBILINOGEN (Dip) 1+ mg/dL (NEGATIVE)
[2017-03-20 20:07] VITALS: BP 140/73; RESP 19
[2017-03-20] MEDS: DOCUSATE SODIUM 100 MG CAP PO SCH (20:50)
[2017-03-20] MEDS: ATORVASTATIN 20 MG TAB PO SCH (20:50)
[2017-03-21 02:00] VITALS: BP 122/69; RESP 18
[2017-03-21 07:30] VITALS: BP 141/78; RESP 20
[2017-03-21 07:50] LABS: BASOPHIL # 0.1 10^3/ul (0.0-0.1); BASOPHILS % 0.5 % (0.0-2.0); EOSINOPHILS # 0.3 10^3/ul (0.0-0.5); EOSINOPHILS % 2.7 % (0.0-7.0); HEMATOCRIT 35.3 % (37.0-47.0); LYMPHOCYTES # 2.4 10^3/ul (0.8-2.9); LYMPHOCYTES % 26.1 % (15.0-51.0); MEAN CORPUSCULAR HEMOGLOBIN 27.5 pg (29.0-33.0); MEAN CORPUSCULAR HGB CONC 31.2 g/dl (32.0-37.0); MEAN CORPUSCULAR VOLUME 88.3 fl (82.0-101.0); MEAN PLATELET VOLUME 10.7 fl (7.4-10.4); MONOCYTE # 0.7 10^3/ul (0.3-0.9); MONOCYTES % 7.5 % (0.0-11.0); NEUTROPHILS % 62.8 % (39.0-77.0); PLATELET COUNT 233 10^3/UL (140-415); RED CELL DISTRIBUTION WIDTH 14.6 % (11.5-14.5); WHITE BLOOD COUNT 9.3 10^3/ul (4.8-10.8)
[2017-03-21 08:17] LABS: ALBUMIN 3.2 g/dl (3.3-4.9); BILIRUBIN,INDIRECT 0.3 mg/dl (0-1.1); BILIRUBIN,TOTAL 0.3 mg/dl (0.2-1.3); CALCIUM 8.9 mg/dl (8.4-10.2); CREATININE 1.25 mg/dl (0.44-1.00); POTASSIUM 4.1 mmol/L (3.5-5.1); TOTAL PROTEIN 6.4 g/dl (6.1-8.1)
[2017-03-21] MEDS: DOCUSATE SODIUM 100 MG CAP PO SCH ×2 (09:29→20:20)
[2017-03-21] MEDS: POLYETHYLENE GLYCOL 17 GM PACKET PO SCH (09:30)
[2017-03-21] MEDS: FAMOTIDINE 20 MG TAB PO SCH (09:30)
[2017-03-21] MEDS: ISOSORBIDE MONONITRATE(SR)30 MG TAB PO SCH (09:30)
[2017-03-21 14:00] VITALS: BP 122/64; RESP 20
--- NOTE | 2017-03-21 19:25 | CONS ---
DATE OF ADMISSION: 03/20/2017 DATE OF CONSULTATION: 03/21/2017 Rehabilitation Post Admission Physician Evaluation REHABILITATION IMPAIRMENT CATEGORY: Left thalamic intracerebral hemorrhage. ACTIVE COMORBIDITIES: 1. Hypertension. 2. Expressive aphasia. 3. Impairments in self-care, mobility and cognition. HISTORY OF PRESENT ILLNESS: Patient is a pleasant 71-year-old, right-handed female with a history of hypertension, who was noted to have expressive aphasia, headaches and buzzing in the ears. She presented to an outside hospital where she was noted to have left thalamic intracerebral hemorrhage. She was transferred to [facility]. She did receive Neurosurgery evaluation. Her blood pressure was managed and she was managed conservatively. No neurosurgical intervention was indicated. Patient has been noted to have significant impairments in self- care, mobility and cognition as compared to baseline and has been cleared to transfer to the rehabilitation unit for comprehensive interdisciplinary rehab care. Functional history prior to recent events: She was independent in self-care tasks and mobility. Currently, patient requires xwznpfc-fk-jlmaqjym assist for self-care mobility tasks. SOCIAL HISTORY: Patient lives at home with supportive family and hopes to return there upon discharge. I have reviewed the preadmission screen and patient's current functional status is consistent with the preadmission screen. PAST MEDICAL HISTORY: Hypertension. The patient reportedly noncompliant with medication. MEDICATION: 1. Lipitor 20 mg p.o. at bedtime. 2. Coreg 3.125 mg p.o. b.i.d. 3. Colace 100 mg p.o. b.i.d. 4. Pepcid 20 mg p.o. daily. 5. [place] p.r.n. 6. Imdur 30 mg p.o. daily. 7. MiraLax 17 grams p.o. daily. ALLERGIES: PATIENT WITH NO KNOWN DRUG ALLERGIES. PHYSICAL EXAMINATION: VITAL SIGNS: Patient is currently afebrile with stable vital signs. HEENT: The extraocular motions are intact. Oropharynx clear. NECK: Supple. LUNGS: Clear anteriorly. HEART: S1, S2. ABDOMEN: Soft, nontender. Positive bowel sounds. NEUROLOGIC: The patient is awake and alert and oriented to person and hospital. She will follow simple one-step commands. She demonstrates antigravity strength in bilateral upper extremity and lower extremity. She does have impaired dynamic balance. PLAN: Patient has been admitted for comprehensive interdisciplinary acute rehab and is anticipated to tolerate 3 hours of daily therapy in divided doses for at least 5 out of 7 days a week. The treatment plan will include: 1. Physical therapy to focus on bed mobility, transfers, and household ambulation with goal of having patient reach a standby assist level. 2. Occupational therapy to focus on hygiene, grooming, dressing, bathing and toileting activities with goal to have patient reach standby assist level. 3. Rehabilitation nursing for carry over of therapeutic interventions. The goal of continent to bowel and bladder, and the goal of patient and family education with regards to the aforementioned issues. 4. Speech therapy for full cognitive assessment and communication assessment and retraining with goal of having patient return to baseline cognition and express basic needs by mouth. ESTIMATED LENGTH OF STAY: 10 days. DISPOSITION GOAL: Home. REHABILITATION BARRIER: Communication. INTERVENTION FOR BARRIER: Speech therapy. I acknowledge I performed a full physical examination on this patient within 24 hours of admission to the rehabilitation unit and believe the patient is a good candidate for comprehensive interdisciplinary rehab care and is anticipated to make reasonable goals in a reasonable period of time as outlined above. Dictated By: Rene Fitzgerald MD /claudio/marcello /Document#: [id number]
[2017-03-21] MEDS: ACETAMINOPHEN 325 MG TAB PO PRN (19:35)
[2017-03-21 20:00] VITALS: BP 131/63; RESP 20
[2017-03-21] MEDS: ATORVASTATIN 20 MG TAB PO SCH (20:20)
[2017-03-21 20:28] VITALS: BP 135/65; PULSE 71; RESP 18
--- NOTE | 2017-03-21 23:23 | CONS ---
DATE OF ADMISSION: 03/20/2017 DATE OF CONSULTATION: 03/21/2017 HISTORY OF PRESENT ILLNESS: This is a 71-year-old lady with history of hypertension, transferred from outside facility following recent intracranial hemorrhage, brought to the ER room. At that time, found to have intracranial hemorrhage, without mass effect. Initial CT scan demonstrated left thalamic parenchymal hemorrhage, with mild narrowing and small hemorrhage. No surgical intervention was performed, and patient was subsequently transferred to [facility] for continuing care. PAST MEDICAL HISTORY: Includes hypertension, hyperlipidemia. MEDICATIONS: Per chart, include: 1. Carvedilol. 2. Atorvastatin. 3. Colace. 4. Magnesium hydroxide. 5. Pepcid. SOCIAL HISTORY: She is a nonsmoker. No alcohol. No street drug use. FAMILY HISTORY: Noncontributory. REVIEW OF SYSTEMS: A 12-point review of systems negative, other than that mentioned above. PHYSICAL EXAMINATION: GENERAL: On examination, elderly-appearing lady, appears comfortable at rest. No acute distress. NEUROLOGIC: Motor strength 4/5, right upper extremity. LABORATORY: Today, white count 9.3, hemoglobin 11, platelets of 233. BUN 21, creatinine 1.25. Chest x-ray has not been performed. Brain CT on 03/18/2017 showed no change in size of left thalamic parenchymal hemorrhage, with mild midline shift. IMPRESSION: 1. Acute intracerebral hemorrhage. 2. Mild neurological deficit. 3. History of hypertension. PLAN: 1. Continue physical therapy. 2. Continue blood pressure management. 3. Continue statin and beta elijah, if indicated. 4. DVT and GI prophylaxis. Dictated By: Feng Dos Santos MD /claudio/candace /Document#: [id number]
[2017-03-22 02:00] VITALS: BP 124/73; RESP 18
[2017-03-22 08:16] VITALS: BP 140/71; PULSE 61; RESP 18
[2017-03-22] MEDS: POLYETHYLENE GLYCOL 17 GM PACKET PO SCH (08:45)
[2017-03-22] MEDS: DOCUSATE SODIUM 100 MG CAP PO SCH ×2 (08:46→20:17)
[2017-03-22] MEDS: ISOSORBIDE MONONITRATE(SR)30 MG TAB PO SCH (08:47)
[2017-03-22] MEDS: FAMOTIDINE 20 MG TAB PO SCH (08:47)
[2017-03-22] MEDS: ACETAMINOPHEN 325 MG TAB PO PRN ×3 (11:51→20:17)
--- NOTE | 2017-03-22 12:41 | CONS ---
Date/Time of Note Date/Time of Note DATE: 03/22/17 TIME: 12:36 Consult Date/Type/Reason Admit Date/Time Mar 20, 2017 at 14:25 Initial Consult Date Type of Consultation: IM Subjective Remains comfortable. Objective Vital Signs Date Time Temp Pulse Resp B/P Pulse Ox O2 Delivery O2 Flow Rate FiO2 03/22/17 08:16 97.8 61 18 140/71 97 Room Air Intake and Output 03/21/17 03/21/17 03/22/17 15:00 23:00 07:00 Intake Total 460 ml 240 ml Balance 460 ml 240 ml Exam GENERAL: VITAL SIGNS: per chart NECK: Supple. No JVD or lymphadenopathy. CARDIAC EXAM: S1, S2. No added sounds or murmurs. CHEST: clear bilaterally, No added sounds, rales or wheezes ABDOMEN: Soft, nontender. No guarding or rebound. EXTREMITIES: No cyanosis, clubbing or edema. NEUROLOGIC: Generalized weakness. Results/Medications Result Diagram: 03/21/1761703/21/17 0618 Medications Current Medications Carvedilol (Coreg) 3.125 mg BID PO Last administered on 03/22/17 08:47; Admin Dose 3.125 MG; Start 03/20/17 at 21:00 Famotidine (Pepcid) 20 mg DAILY PO Last administered on 03/22/17 08:47; Admin Dose 20 MG; Start 03/21/17 at 09:00 Isosorbide Mononitrate (Imdur) 30 mg DAILY PO Last administered on 03/22/17 08 :47; Admin Dose 30 MG; Start 03/21/17 at 09:00 Acetaminophen/ Hydrocodone Bitart ([place] (5/325)) 1 tab Q3H PRN PO PAIN; Start 03/20/17 at 15:30 Atorvastatin Calcium (Lipitor) 20 mg HS PO Last administered on 03/21/17 20:20 ; Admin Dose 20 MG; Start 03/20/17 at 21:00 Al Hydrox/Mg Hydrox/Simethicone (Mag-Al Plus) 30 ml Q4H PRN PO GASTROINTESTINAL UPSET; Start 03/20/17 at 15:30 Docusate Sodium (Colace) 100 mg BID PO Last administered on 03/22/17 08:46; Admin Dose 100 MG; Start 03/20/17 at 21:00 Polyethylene Glycol (Miralax) 17 gm DAILY PO Last administered on 03/22/17 08: 45; Admin Dose 17 GM; Start 03/21/17 at 09:00 Acetaminophen (Tylenol Tab) 650 mg Q4H PRN PO PAIN Last administered on 11:51; Admin Dose 650 MG; Start 03/20/17 at 17:00 Bisacodyl (Dulcolax Supp) 10 mg DAILY PRN [place] CONSTIPATION; Start 03/20/17 at 17 :00 Magnesium Hydroxide (Milk Of Mag) 30 ml BID PRN PO CONSTIPATION; Start at 17:00 Lactulose (Enulose) 20 gm DAILY PRN PO CONSTIPATION; Start 03/20/17 at 17:00 Assessment/Plan Chief Complaint/Hosp Course Assessment 1. Thalamic cva 2. Hx htn 3. gm neg uti. Plan 1. Continue PT 2. BP control. 3. cipro for uti Problems: TRAM DURAN MD, [facility] Mar 22, 2017 12:41
--- NOTE | 2017-03-22 12:46 | CONS ---
Date/Time of Note Date/Time of Note DATE: 03/22/17 TIME: 12:42 Consult Date/Type/Reason Admit Date/Time Mar 20, 2017 at 14:25 Initial Consult Date Type of Consultation: IM Subjective Comfortable Objective Lungs clear abdomen soft Moderate assist 12 feet Vital Signs Date Time Temp Pulse Resp B/P Pulse Ox O2 Delivery O2 Flow Rate FiO2 03/22/17 08:16 97.8 61 18 140/71 97 Room Air Intake and Output 03/21/17 03/21/17 03/22/17 15:00 23:00 07:00 Intake Total 460 ml 240 ml Balance 460 ml 240 ml Results/Medications Result Diagram: 03/21/17 0618 03/21/17 0618 Medications Current Medications Carvedilol (Coreg) 3.125 mg BID PO Last administered on 03/22/17 08:47; Admin Dose 3.125 MG; Start 03/20/17 at 21:00 Famotidine (Pepcid) 20 mg DAILY PO Last administered on 03/22/17 08:47; Admin Dose 20 MG; Start 03/21/17 at 09:00 Isosorbide Mononitrate (Imdur) 30 mg DAILY PO Last administered on 03/22/17 08 :47; Admin Dose 30 MG; Start 03/21/17 at 09:00 Acetaminophen/ Hydrocodone Bitart ([place] (5/325)) 1 tab Q3H PRN PO PAIN; Start 03/20/17 at 15:30 Atorvastatin Calcium (Lipitor) 20 mg HS PO Last administered on 03/21/17 20:20 ; Admin Dose 20 MG; Start 03/20/17 at 21:00 Al Hydrox/Mg Hydrox/Simethicone (Mag-Al Plus) 30 ml Q4H PRN PO GASTROINTESTINAL UPSET; Start 03/20/17 at 15:30 Docusate Sodium (Colace) 100 mg BID PO Last administered on 03/22/17 08:46; Admin Dose 100 MG; Start 03/20/17 at 21:00 Polyethylene Glycol (Miralax) 17 gm DAILY PO Last administered on 03/22/17 08: 45; Admin Dose 17 GM; Start 03/21/17 at 09:00 Acetaminophen (Tylenol Tab) 650 mg Q4H PRN PO PAIN Last administered on 11:51; Admin Dose 650 MG; Start 03/20/17 at 17:00 Bisacodyl (Dulcolax Supp) 10 mg DAILY PRN [place] CONSTIPATION; Start 03/20/17 at 17 :00 Magnesium Hydroxide (Milk Of Mag) 30 ml BID PRN PO CONSTIPATION; Start at 17:00 Lactulose (Enulose) 20 gm DAILY PRN PO CONSTIPATION; Start 03/20/17 at 17:00 Assessment/Plan Additional Assessment/Plan Rehab - left thalamic intracerebral hemorrhage. Continue interdisciplinary treatment plan Hypertension. Expressive aphasia-continue speech therapy ANTHONY LEE MD Mar 22, 2017 12:46
[2017-03-22] MEDS: CIPROFLOXACIN 500 MG TAB PO SCH ×2 (13:56→17:35)
[2017-03-22 14:49] VITALS: BP 107/62; RESP 18
[2017-03-22] MEDS: ATORVASTATIN 20 MG TAB PO SCH (20:17)
[2017-03-22 21:25] VITALS: BP 154/71; RESP 18
[2017-03-23 02:00] VITALS: BP 118/61; RESP 18
[2017-03-23] MEDS: CIPROFLOXACIN 500 MG TAB PO SCH ×2 (06:04→17:35)
[2017-03-23 06:24] LABS: BASOPHIL # 0.1 10^3/ul (0.0-0.1); BASOPHILS % 0.6 % (0.0-2.0); EOSINOPHILS # 0.3 10^3/ul (0.0-0.5); EOSINOPHILS % 3.1 % (0.0-7.0); HEMATOCRIT 35.6 % (37.0-47.0); LYMPHOCYTES # 2.6 10^3/ul (0.8-2.9); MEAN CORPUSCULAR HEMOGLOBIN 27.5 pg (29.0-33.0); MEAN CORPUSCULAR HGB CONC 30.9 g/dl (32.0-37.0); MEAN PLATELET VOLUME 10.6 fl (7.4-10.4); MONOCYTE # 0.5 10^3/ul (0.3-0.9); MONOCYTES % 6.6 % (0.0-11.0); NEUTROPHILS % 57.3 % (39.0-77.0); PLATELET COUNT 243 10^3/UL (140-415); RED CELL DISTRIBUTION WIDTH 14.4 % (11.5-14.5)
[2017-03-23 06:56] LABS: CALCIUM 9.1 mg/dl (8.4-10.2); CREATININE 1.36 mg/dl (0.44-1.00); MAGNESIUM 2.1 mg/dl (1.7-2.5); PHOSPHORUS 4.1 mg/dl (2.5-4.9); POTASSIUM 4.5 mmol/L (3.5-5.1)
[2017-03-23 08:00] VITALS: BP 158/78; RESP 18
[2017-03-23] MEDS: DOCUSATE SODIUM 100 MG CAP PO SCH ×2 (09:00→20:37)
[2017-03-23] MEDS: POLYETHYLENE GLYCOL 17 GM PACKET PO SCH (09:00)
[2017-03-23] MEDS: FAMOTIDINE 20 MG TAB PO SCH (09:00)
[2017-03-23] MEDS: ACETAMINOPHEN 325 MG TAB PO PRN ×3 (09:00→21:46)
[2017-03-23] MEDS: ISOSORBIDE MONONITRATE(SR)30 MG TAB PO SCH (09:02)
--- NOTE | 2017-03-23 11:41 | CONS ---
Date/Time of Note Date/Time of Note DATE: 03/23/17 TIME: 11:41 Consult Date/Type/Reason Admit Date/Time Mar 20, 2017 at 14:25 Type of Consultation: IM Subjective Comfortable. Objective Vital Signs Date Time Temp Pulse Resp B/P Pulse Ox O2 Delivery O2 Flow Rate FiO2 03/23/17 08:00 97.9 71 18 158/78 93 03/22/17 08:16 Room Air Intake and Output 03/22/17 03/22/17 03/23/17 15:00 23:00 07:00 Intake Total 480 ml 1200 ml Balance 480 ml 1200 ml Exam GENERAL: VITAL SIGNS: per chart NECK: Supple. No JVD or lymphadenopathy. CARDIAC EXAM: S1, S2. No added sounds or murmurs. CHEST: clear bilaterally, No added sounds, rales or wheezes ABDOMEN: Soft, nontender. No guarding or rebound. EXTREMITIES: No cyanosis, clubbing or edema. NEUROLOGIC: Generalized weakness. Results/Medications Result Diagram: 03/23/17 0602 03/23/17 0602 Results 24 hrs Laboratory Tests Test 03/23/17 06:02 White Blood Count 8.0 Red Blood Count 4.00 L Hemoglobin 11.0 L Hematocrit 35.6 L Mean Corpuscular Volume 89.0 Mean Corpuscular Hemoglobin 27.5 L Mean Corpuscular Hemoglobin Concent 30.9 L Red Cell Distribution Width 14.4 Platelet Count 243 Mean Platelet Volume 10.6 H Neutrophils % 57.3 Lymphocytes % 32.0 Monocytes % 6.6 Eosinophils % 3.1 Basophils % 0.6 Nucleated Red Blood Cells % 0.0 Neutrophils # (Manual) 4.6 Lymphocytes # 2.6 Monocytes # 0.5 Eosinophils # 0.3 Basophils # 0.1 Nucleated Red Blood Cells # 0.0 Sodium Level 143 Potassium Level 4.5 Chloride Level 109 Carbon Dioxide Level 29 Anion Gap 10 Blood Urea Nitrogen 26 H Creatinine 1.36 H Glucose Level 97 Calcium Level 9.1 Phosphorus Level 4.1 Magnesium Level 2.1 Medications Current Medications Carvedilol (Coreg) 3.125 mg BID PO Last administered on 03/23/17 09:02; Admin Dose 3.125 MG; Start 03/20/17 at 21:00 Famotidine (Pepcid) 20 mg DAILY PO Last administered on 03/23/17 09:00; Admin Dose 20 MG; Start 03/21/17 at 09:00 Isosorbide Mononitrate (Imdur) 30 mg DAILY PO Last administered on 03/23/17 09 :02; Admin Dose 30 MG; Start 03/21/17 at 09:00 Acetaminophen/ Hydrocodone Bitart ([place] (5/325)) 1 tab Q3H PRN PO PAIN; Start 03/20/17 at 15:30 Atorvastatin Calcium (Lipitor) 20 mg HS PO Last administered on 03/22/17 20:17 ; Admin Dose 20 MG; Start 03/20/17 at 21:00 Al Hydrox/Mg Hydrox/Simethicone (Mag-Al Plus) 30 ml Q4H PRN PO GASTROINTESTINAL UPSET; Start 03/20/17 at 15:30 Docusate Sodium (Colace) 100 mg BID PO Last administered on 03/23/17 09:00; Admin Dose 100 MG; Start 03/20/17 at 21:00 Polyethylene Glycol (Miralax) 17 gm DAILY PO Last administered on 03/23/17 09: 00; Admin Dose 17 GM; Start 03/21/17 at 09:00 Acetaminophen (Tylenol Tab) 650 mg Q4H PRN PO PAIN Last administered on 09:00; Admin Dose 650 MG; Start 03/20/17 at 17:00 Bisacodyl (Dulcolax Supp) 10 mg DAILY PRN [place] CONSTIPATION; Start 03/20/17 at 17 :00 Magnesium Hydroxide (Milk Of Mag) 30 ml BID PRN [place] CONSTIPATION; Start at 17:00 Lactulose (Enulose) 20 gm DAILY PRN PO CONSTIPATION; Start 03/20/17 at 17:00 Ciprofloxacin (Cipro) 500 mg BID@,18 PO Last administered on 03/23/17 06:04 ; Admin Dose 500 MG; Start 03/22/17 at 12:47; Stop 03/27/17 at 12:46 Assessment/Plan Chief Complaint/Hosp Course Assessment 1. Thalamic cva 2. Hx htn 3. gm neg uti. Plan 1. Continue PT 2. BP control. 3. cipro for uti 5 days. Problems: TRAM DURAN MD, [facility] Mar 23, 2017 11:41
--- NOTE | 2017-03-23 12:25 | CONS ---
Date/Time of Note Date/Time of Note DATE: 03/23/17 TIME: 12:24 Consult Date/Type/Reason Admit Date/Time Mar 20, 2017 at 14:25 Type of Consultation: IM Subjective Doing well Objective pulm-cta cga 50 feet Vital Signs Date Time Temp Pulse Resp B/P Pulse Ox O2 Delivery O2 Flow Rate FiO2 03/23/17 08:00 97.9 71 18 158/78 93 03/22/17 08:16 Room Air Intake and Output 03/22/17 03/22/17 03/23/17 15:00 23:00 07:00 Intake Total 480 ml 1200 ml Balance 480 ml 1200 ml Results/Medications Result Diagram: 03/23/17 0602 03/23/17 0602 Results 24 hrs Laboratory Tests Test 03/23/17 06:02 White Blood Count 8.0 Red Blood Count 4.00 L Hemoglobin 11.0 L Hematocrit 35.6 L Mean Corpuscular Volume 89.0 Mean Corpuscular Hemoglobin 27.5 L Mean Corpuscular Hemoglobin Concent 30.9 L Red Cell Distribution Width 14.4 Platelet Count 243 Mean Platelet Volume 10.6 H Neutrophils % 57.3 Lymphocytes % 32.0 Monocytes % 6.6 Eosinophils % 3.1 Basophils % 0.6 Nucleated Red Blood Cells % 0.0 Neutrophils # (Manual) 4.6 Lymphocytes # 2.6 Monocytes # 0.5 Eosinophils # 0.3 Basophils # 0.1 Nucleated Red Blood Cells # 0.0 Sodium Level 143 Potassium Level 4.5 Chloride Level 109 Carbon Dioxide Level 29 Anion Gap 10 Blood Urea Nitrogen 26 H Creatinine 1.36 H Glucose Level 97 Calcium Level 9.1 Phosphorus Level 4.1 Magnesium Level 2.1 Medications Current Medications Carvedilol (Coreg) 3.125 mg BID PO Last administered on 03/23/17 09:02; Admin Dose 3.125 MG; Start 03/20/17 at 21:00 Famotidine (Pepcid) 20 mg DAILY PO Last administered on 03/23/17 09:00; Admin Dose 20 MG; Start 03/21/17 at 09:00 Isosorbide Mononitrate (Imdur) 30 mg DAILY PO Last administered on 03/23/17 09 :02; Admin Dose 30 MG; Start 03/21/17 at 09:00 Acetaminophen/ Hydrocodone Bitart ([place] (5/325)) 1 tab Q3H PRN PO PAIN; Start 03/20/17 at 15:30 Atorvastatin Calcium (Lipitor) 20 mg HS PO Last administered on 03/22/17 20:17 ; Admin Dose 20 MG; Start 03/20/17 at 21:00 Al Hydrox/Mg Hydrox/Simethicone (Mag-Al Plus) 30 ml Q4H PRN PO GASTROINTESTINAL UPSET; Start 03/20/17 at 15:30 Docusate Sodium (Colace) 100 mg BID PO Last administered on 03/23/17 09:00; Admin Dose 100 MG; Start 03/20/17 at 21:00 Polyethylene Glycol (Miralax) 17 gm DAILY PO Last administered on 03/23/17 09: 00; Admin Dose 17 GM; Start 03/21/17 at 09:00 Acetaminophen (Tylenol Tab) 650 mg Q4H PRN PO PAIN Last administered on 09:00; Admin Dose 650 MG; Start 03/20/17 at 17:00 Bisacodyl (Dulcolax Supp) 10 mg DAILY PRN [place] CONSTIPATION; Start 03/20/17 at 17 :00 Magnesium Hydroxide (Milk Of Mag) 30 ml BID PRN PO CONSTIPATION; Start at 17:00 Lactulose (Enulose) 20 gm DAILY PRN PO CONSTIPATION; Start 03/20/17 at 17:00 Ciprofloxacin (Cipro) 500 mg BID@06,18 PO Last administered on 03/23/17 06:04 ; Admin Dose 500 MG; Start 03/22/17 at 12:47; Stop 03/27/17 at 12:46 Assessment/Plan Additional Assessment/Plan Rehab - left thalamic intracerebral hemorrhage. Continue rehab plan Hypertension. Expressive aphasia-continue speech therapy ANTHONY LEE MD Mar 23, 2017 12:25
[2017-03-23 14:00] VITALS: BP 110/58; RESP 18
[2017-03-23 20:00] VITALS: BP 150/72; RESP 18
[2017-03-23] MEDS: ATORVASTATIN 20 MG TAB PO SCH (20:37)
[2017-03-23 20:40] VITALS: BP 148/69; PULSE 68
[2017-03-24 02:00] VITALS: BP 125/69; RESP 18
[2017-03-24] MEDS: CIPROFLOXACIN 500 MG TAB PO SCH ×2 (06:35→17:25)
[2017-03-24 07:30] VITALS: BP 153/75; RESP 20
[2017-03-24] MEDS: FAMOTIDINE 20 MG TAB PO SCH (08:43)
[2017-03-24] MEDS: ISOSORBIDE MONONITRATE(SR)30 MG TAB PO SCH (08:43)
[2017-03-24] MEDS: DOCUSATE SODIUM 100 MG CAP PO SCH ×2 (08:43→21:01)
[2017-03-24] MEDS: POLYETHYLENE GLYCOL 17 GM PACKET PO SCH (08:44)
--- NOTE | 2017-03-24 11:12 | CONS ---
Date/Time of Note Date/Time of Note DATE: 03/24/17 TIME: 11:10 Consult Date/Type/Reason Admit Date/Time Mar 20, 2017 at 14:25 Type of Consultation: IM Subjective Sitting up in chair comfortable. Continues physical therapy. Objective Vital Signs Date Time Temp Pulse Resp B/P Pulse Ox O2 Delivery O2 Flow Rate FiO2 03/24/17 07:30 97.5 65 20 153/75 97 03/22/17 08:16 Room Air Exam GENERAL: VITAL SIGNS: per chart NECK: Supple. No JVD or lymphadenopathy. CARDIAC EXAM: S1, S2. No added sounds or murmurs. CHEST: clear bilaterally, No added sounds, rales or wheezes ABDOMEN: Soft, nontender. No guarding or rebound. EXTREMITIES: No cyanosis, clubbing or edema. NEUROLOGIC: Generalized weakness. Results/Medications Result Diagram: 03/23/1760103/23/17 06 Medications Current Medications Carvedilol (Coreg) 3.125 mg BID PO Last administered on 03/24/17 08:43; Admin Dose 3.125 MG; Start 03/20/17 at 21:00 Famotidine (Pepcid) 20 mg DAILY PO Last administered on 03/24/17 08:43; Admin Dose 20 MG; Start 03/21/17 at 09:00 Isosorbide Mononitrate (Imdur) 30 mg DAILY PO Last administered on 03/24/17 08 :43; Admin Dose 30 MG; Start 03/21/17 at 09:00 Acetaminophen/ Hydrocodone Bitart ([place] (5/325)) 1 tab Q3H PRN PO PAIN; Start 03/20/17 at 15:30 Atorvastatin Calcium (Lipitor) 20 mg HS PO Last administered on 03/23/17 20:37 ; Admin Dose 20 MG; Start 03/20/17 at 21:00 Al Hydrox/Mg Hydrox/Simethicone (Mag-Al Plus) 30 ml Q4H PRN PO GASTROINTESTINAL UPSET; Start 03/20/17 at 15:30 Docusate Sodium (Colace) 100 mg BID PO Last administered on 03/24/17 08:43; Admin Dose 100 MG; Start 03/20/17 at 21:00 Polyethylene Glycol (Miralax) 17 gm DAILY PO Last administered on 03/24/17 08: 44; Admin Dose 17 GM; Start 03/21/17 at 09:00 Acetaminophen (Tylenol Tab) 650 mg Q4H PRN PO PAIN Last administered on 21:46; Admin Dose 650 MG; Start 03/20/17 at 17:00 Bisacodyl (Dulcolax Supp) 10 mg DAILY PRN [place] CONSTIPATION; Start 03/20/17 at 17 :00 Magnesium Hydroxide (Milk Of Mag) 30 ml BID PRN PO CONSTIPATION; Start at 17:00 Lactulose (Enulose) 20 gm DAILY PRN PO CONSTIPATION; Start 03/20/17 at 17:00 Ciprofloxacin (Cipro) 500 mg BID@06,18 PO Last administered on 03/24/17 06:35 ; Admin Dose 500 MG; Start 03/22/17 at 12:47; Stop 03/27/17 at 12:46 Assessment/Plan Chief Complaint/Hosp Course Add hydrochlorothiazide his BP remains assessment 1. Thalamic cva 2. Hx htn 3. gm neg uti. Plan 1. Continue PT 2. BP control. Add hydrochlorothiazide. Repeat labs. 3. cipro for uti 5 days. Problems: TRAM DURAN MD, [facility] Mar 24, 2017 11:12
[2017-03-24] MEDS: HYDROCHLOROTHIAZIDE 12.5 MG CAP PO SCH (12:17)
--- NOTE | 2017-03-24 13:41 | CONS ---
Date/Time of Note Date/Time of Note DATE: 03/24/17 TIME: 13:41 Consult Date/Type/Reason Admit Date/Time Mar 20, 2017 at 14:25 Type of Consultation: IM Subjective Doing very well Objective pulm-cta sba ambulation Vital Signs Date Time Temp Pulse Resp B/P Pulse Ox O2 Delivery O2 Flow Rate FiO2 03/24/17 07:30 97.5 65 20 153/75 97 03/22/17 08:16 Room Air Results/Medications Result Diagram: 03/23/17 0602 03/23/17 0602 Medications Current Medications Carvedilol (Coreg) 3.125 mg BID PO Last administered on 03/24/17 08:43; Admin Dose 3.125 MG; Start 03/20/17 at 21:00 Famotidine (Pepcid) 20 mg DAILY PO Last administered on 03/24/17 08:43; Admin Dose 20 MG; Start 03/21/17 at 09:00 Isosorbide Mononitrate (Imdur) 30 mg DAILY PO Last administered on 03/24/17 08 :43; Admin Dose 30 MG; Start 03/21/17 at 09:00 Acetaminophen/ Hydrocodone Bitart ([place] (5/325)) 1 tab Q3H PRN PO PAIN; Start 03/20/17 at 15:30 Atorvastatin Calcium (Lipitor) 20 mg HS PO Last administered on 03/23/17 20:37 ; Admin Dose 20 MG; Start 03/20/17 at 21:00 Al Hydrox/Mg Hydrox/Simethicone (Mag-Al Plus) 30 ml Q4H PRN PO GASTROINTESTINAL UPSET; Start 03/20/17 at 15:30 Docusate Sodium (Colace) 100 mg BID PO Last administered on 03/24/17 08:43; Admin Dose 100 MG; Start 03/20/17 at 21:00 Polyethylene Glycol (Miralax) 17 gm DAILY PO Last administered on 03/24/17 08: 44; Admin Dose 17 GM; Start 03/21/17 at 09:00 Acetaminophen (Tylenol Tab) 650 mg Q4H PRN PO PAIN Last administered on 21:46; Admin Dose 650 MG; Start 03/20/17 at 17:00 Bisacodyl (Dulcolax Supp) 10 mg DAILY PRN [place] CONSTIPATION; Start 03/20/17 at 17 :00 Magnesium Hydroxide (Milk Of Mag) 30 ml BID PRN PO CONSTIPATION; Start at 17:00 Lactulose (Enulose) 20 gm DAILY PRN PO CONSTIPATION; Start 03/20/17 at 17:00 Ciprofloxacin (Cipro) 500 mg BID@,18 PO Last administered on 03/24/17 06:35 ; Admin Dose 500 MG; Start 03/22/17 at 12:47; Stop 03/27/17 at 12:46 Hydrochlorothiazide (Hydrochlorothiazide) 12.5 mg DAILY PO Last administered on 03/24/17 12:17; Admin Dose 12.5 MG; Start 03/24/17 at 11:30 Assessment/Plan Additional Assessment/Plan Rehab - left thalamic intracerebral hemorrhage. Continue rehab progam Hypertension. Expressive aphasia-continue speech therapy ANTHONY LEE MD Mar 24, 2017 13:41
[2017-03-24 14:00] VITALS: BP 143/73; RESP 20
[2017-03-24 20:00] VITALS: BP 144/74; PULSE 73; RESP 18
[2017-03-24] MEDS: ATORVASTATIN 20 MG TAB PO SCH (21:01)
[2017-03-25 02:00] VITALS: BP 138/68; RESP 18
[2017-03-25] MEDS: CIPROFLOXACIN 500 MG TAB PO SCH ×2 (05:54→17:07)
[2017-03-25 06:55] LABS: BASOPHIL # 0.1 10^3/ul (0.0-0.1); BASOPHILS % 0.9 % (0.0-2.0); EOSINOPHILS # 0.2 10^3/ul (0.0-0.5); EOSINOPHILS % 2.3 % (0.0-7.0); HEMATOCRIT 36.4 % (37.0-47.0); HEMOGLOBIN 11.2 g/dl (12.0-16.0); LYMPHOCYTES # 2.9 10^3/ul (0.8-2.9); LYMPHOCYTES % 35.2 % (15.0-51.0); MEAN CORPUSCULAR HEMOGLOBIN 27.3 pg (29.0-33.0); MEAN CORPUSCULAR HGB CONC 30.8 g/dl (32.0-37.0); MEAN CORPUSCULAR VOLUME 88.6 fl (82.0-101.0); MEAN PLATELET VOLUME 10.4 fl (7.4-10.4); MONOCYTE # 0.6 10^3/ul (0.3-0.9); MONOCYTES % 7.1 % (0.0-11.0); NEUTROPHIL # 4.4 10^3/ul (1.6-7.5); NEUTROPHILS % 54.3 % (39.0-77.0); PLATELET COUNT 270 10^3/UL (140-415); RED BLOOD COUNT 4.11 10^6/ul (4.20-5.40); RED CELL DISTRIBUTION WIDTH 14.4 % (11.5-14.5); WHITE BLOOD COUNT 8.2 10^3/ul (4.8-10.8)
[2017-03-25 07:24] LABS: CALCIUM 9.3 mg/dl (8.4-10.2); CREATININE 1.32 mg/dl (0.44-1.00); MAGNESIUM 2.1 mg/dl (1.7-2.5); PHOSPHORUS 3.8 mg/dl (2.5-4.9); POTASSIUM 4.4 mmol/L (3.5-5.1)
[2017-03-25 08:00] VITALS: BP 148/70; PULSE 64; RESP 20
[2017-03-25] MEDS: HYDROCHLOROTHIAZIDE 12.5 MG CAP PO SCH (08:22)
[2017-03-25] MEDS: POLYETHYLENE GLYCOL 17 GM PACKET PO SCH (08:22)
[2017-03-25] MEDS: ISOSORBIDE MONONITRATE(SR)30 MG TAB PO SCH (08:23)
[2017-03-25] MEDS: DOCUSATE SODIUM 100 MG CAP PO SCH ×2 (08:23→20:45)
[2017-03-25] MEDS: FAMOTIDINE 20 MG TAB PO SCH (08:25)
--- NOTE | 2017-03-25 13:43 | CONS ---
Date/Time of Note Date/Time of Note DATE: 03/25/17 TIME: 13:42 Consult Date/Type/Reason Admit Date/Time Mar 20, 2017 at 14:25 Type of Consultation: IM Subjective Comfortable, family pleased with progress, and requesting early discharge Objective pulm-cta abd-soft sba ambulation Vital Signs Date Time Temp Pulse Resp B/P Pulse Ox O2 Delivery O2 Flow Rate FiO2 03/25/17 08:00 97.6 64 20 148/70 96 Room Air Intake and Output 03/24/17 03/24/17 03/25/17 15:00 23:00 07:00 Intake Total 660 ml 620 ml Balance 660 ml 620 ml Results/Medications Result Diagram: 03/25/1762003/25/17620 Results 24 hrs Laboratory Tests Test 03/25/17 06:21 White Blood Count 8.2 Red Blood Count 4.11 L Hemoglobin 11.2 L Hematocrit 36.4 L Mean Corpuscular Volume 88.6 Mean Corpuscular Hemoglobin 27.3 L Mean Corpuscular Hemoglobin Concent 30.8 L Red Cell Distribution Width 14.4 Platelet Count 270 Mean Platelet Volume 10.4 Neutrophils % 54.3 Lymphocytes % 35.2 Monocytes % 7.1 Eosinophils % 2.3 Basophils % 0.9 Nucleated Red Blood Cells % 0.0 Neutrophils # 4.4 Lymphocytes # 2.9 Monocytes # 0.6 Eosinophils # 0.2 Basophils # 0.1 Nucleated Red Blood Cells # 0.0 Sodium Level 143 Potassium Level 4.4 Chloride Level 108 Carbon Dioxide Level 30 Anion Gap 9 Blood Urea Nitrogen 25 H Creatinine 1.32 H Glucose Level 91 Calcium Level 9.3 Phosphorus Level 3.8 Magnesium Level 2.1 Medications Current Medications Carvedilol (Coreg) 3.125 mg BID PO Last administered on 03/25/17 08:23; Admin Dose 3.125 MG; Start 03/20/17 at 21:00 Famotidine (Pepcid) 20 mg DAILY PO Last administered on 03/25/17 08:25; Admin Dose 20 MG; Start 03/21/17 at 09:00 Isosorbide Mononitrate (Imdur) 30 mg DAILY PO Last administered on 03/25/17 08 :23; Admin Dose 30 MG; Start 03/21/17 at 09:00 Acetaminophen/ Hydrocodone Bitart ([place] (5/325)) 1 tab Q3H PRN PO PAIN; Start 03/20/17 at 15:30 Atorvastatin Calcium (Lipitor) 20 mg HS PO Last administered on 03/24/17 21:01 ; Admin Dose 20 MG; Start 03/20/17 at 21:00 Al Hydrox/Mg Hydrox/Simethicone (Mag-Al Plus) 30 ml Q4H PRN PO GASTROINTESTINAL UPSET; Start 03/20/17 at 15:30 Docusate Sodium (Colace) 100 mg BID PO Last administered on 03/25/17 08:23; Admin Dose 100 MG; Start 03/20/17 at 21:00 Polyethylene Glycol (Miralax) 17 gm DAILY PO Last administered on 03/25/17 08: 22; Admin Dose 17 GM; Start 03/21/17 at 09:00 Acetaminophen (Tylenol Tab) 650 mg Q4H PRN PO PAIN Last administered on 21:46; Admin Dose 650 MG; Start 03/20/17 at 17:00 Bisacodyl (Dulcolax Supp) 10 mg DAILY PRN [place] CONSTIPATION; Start 03/20/17 at 17 :00 Magnesium Hydroxide (Milk Of Mag) 30 ml BID PRN PO CONSTIPATION; Start at 17:00 Lactulose (Enulose) 20 gm DAILY PRN PO CONSTIPATION; Start 03/20/17 at 17:00 Ciprofloxacin (Cipro) 500 mg BID@06,18 PO Last administered on 03/25/17 05:54 ; Admin Dose 500 MG; Start 03/22/17 at 12:47; Stop 03/27/17 at 12:46 Hydrochlorothiazide (Hydrochlorothiazide) 12.5 mg DAILY PO Last administered on 03/25/17 08:22; Admin Dose 12.5 MG; Start 03/24/17 at 11:30 Assessment/Plan Additional Assessment/Plan Rehab - left thalamic intracerebral hemorrhage. Continue rehab plan, anticipate dc tomorrow Hypertension. Expressive aphasia-continue speech therapy ANTHONY LEE MD Mar 25, 2017 13:43
--- NOTE | 2017-03-25 15:00 | CONS ---
Date/Time of Note Date/Time of Note DATE: 03/25/17 TIME: 14:58 Assessment/Plan Assessment/Plan Additional Assessment/Plan Assessment and plan; 1. Patient admitted with thalamic CVA with interval improvement. 2. Mild chronic renal insufficiency. Continue current supportive care. Patient responding well to physical therapy. Consultation Date/Type/Reason Admit Date/Time Mar 20, 2017 at 14:25 Initial Consult Date Type of Consultation: IM 24 HR Interval Summary Free Text/Dictation Patient's overall condition is stable. No untoward events reported. Has remained hemodynamically stable. General exam; elderly female, awake, currently no distress. Exhibiting generalized weakness. Exam/Review of Systems Vital Signs Vitals Vital Signs Date Time Temp Pulse Resp B/P Pulse Ox O2 Delivery O2 Flow Rate FiO2 03/25/17 08:00 97.6 64 20 148/70 96 Room Air Intake and Output 03/24/17 03/24/17 03/25/17 15:00 23:00 07:00 Intake Total 660 ml 620 ml Balance 660 ml 620 ml Exam HEENT exam; supple neck, no JVD. No lymphadenopathy. Midline trachea. No thyromegaly. No neck masses. Pupils are midsize and reactive to light. Chest exam; clear to auscultation. S1-S2 audible, no murmurs. Regular rhythm. Abdomen exam; soft, no organomegaly. Bowel sounds audible. Extremity exam; no peripheral edema. V[place] SANDER exam; no focal motor deficit. Patient however exhibiting generalized weakness. Results Result Diagram: 03/25/17 0621 03/25/17 0621 Results 24 hrs Laboratory Tests Test 03/25/17 06:21 White Blood Count 8.2 Red Blood Count 4.11 L Hemoglobin 11.2 L Hematocrit 36.4 L Mean Corpuscular Volume 88.6 Mean Corpuscular Hemoglobin 27.3 L Mean Corpuscular Hemoglobin Concent 30.8 L Red Cell Distribution Width 14.4 Platelet Count 270 Mean Platelet Volume 10.4 Neutrophils % 54.3 Lymphocytes % 35.2 Monocytes % 7.1 Eosinophils % 2.3 Basophils % 0.9 Nucleated Red Blood Cells % 0.0 Neutrophils # 4.4 Lymphocytes # 2.9 Monocytes # 0.6 Eosinophils # 0.2 Basophils # 0.1 Nucleated Red Blood Cells # 0.0 Sodium Level 143 Potassium Level 4.4 Chloride Level 108 Carbon Dioxide Level 30 Anion Gap 9 Blood Urea Nitrogen 25 H Creatinine 1.32 H Glucose Level 91 Calcium Level 9.3 Phosphorus Level 3.8 Magnesium Level 2.1 Medications Medications Current Medications Carvedilol (Coreg) 3.125 mg BID PO Last administered on 03/25/17 08:23; Admin Dose 3.125 MG; Start 03/20/17 at 21:00 Famotidine (Pepcid) 20 mg DAILY PO Last administered on 03/25/17 08:25; Admin Dose 20 MG; Start 03/21/17 at 09:00 Isosorbide Mononitrate (Imdur) 30 mg DAILY PO Last administered on 03/25/17 08 :23; Admin Dose 30 MG; Start 03/21/17 at 09:00 Acetaminophen/ Hydrocodone Bitart ([place] (5/325)) 1 tab Q3H PRN PO PAIN; Start 03/20/17 at 15:30 Atorvastatin Calcium (Lipitor) 20 mg HS PO Last administered on 03/24/17 21:01 ; Admin Dose 20 MG; Start 03/20/17 at 21:00 Al Hydrox/Mg Hydrox/Simethicone (Mag-Al Plus) 30 ml Q4H PRN PO GASTROINTESTINAL UPSET; Start 03/20/17 at 15:30 Docusate Sodium (Colace) 100 mg BID PO Last administered on 03/25/17 08:23; Admin Dose 100 MG; Start 03/20/17 at 21:00 Polyethylene Glycol (Miralax) 17 gm DAILY PO Last administered on 03/25/17 08: 22; Admin Dose 17 GM; Start 03/21/17 at 09:00 Acetaminophen (Tylenol Tab) 650 mg Q4H PRN PO PAIN Last administered on 21:46; Admin Dose 650 MG; Start 03/20/17 at 17:00 Bisacodyl (Dulcolax Supp) 10 mg DAILY PRN [place] CONSTIPATION; Start 03/20/17 at 17 :00 Magnesium Hydroxide (Milk Of Mag) 30 ml BID PRN PO CONSTIPATION; Start at 17:00 Lactulose (Enulose) 20 gm DAILY PRN PO CONSTIPATION; Start 03/20/17 at 17:00 Ciprofloxacin (Cipro) 500 mg BID@,18 PO Last administered on 03/25/17 05:54 ; Admin Dose 500 MG; Start 03/22/17 at 12:47; Stop 03/27/17 at 12:46 Hydrochlorothiazide (Hydrochlorothiazide) 12.5 mg DAILY PO Last administered on 03/25/17t 08:22; Admin Dose 12.5 MG; Start 03/24/17 at 11:30 BRAN JENNINGS Mar 25, 2017 15:00
[2017-03-25 16:10] VITALS: BP 138/109; RESP 19
[2017-03-25 20:00] VITALS: BP 139/79; RESP 18
[2017-03-25] MEDS: ATORVASTATIN 20 MG TAB PO SCH (20:45)
[2017-03-26 02:00] VITALS: BP 134/72; RESP 18
[2017-03-26] MEDS: CIPROFLOXACIN 500 MG TAB PO SCH (06:10)
[2017-03-26 07:30] VITALS: BP 177/80; RESP 18
[2017-03-26] MEDS: FAMOTIDINE 20 MG TAB PO SCH (08:42)
[2017-03-26] MEDS: DOCUSATE SODIUM 100 MG CAP PO SCH (08:42)
[2017-03-26] MEDS: HYDROCHLOROTHIAZIDE 12.5 MG CAP PO SCH (08:43)
[2017-03-26] MEDS: ISOSORBIDE MONONITRATE(SR)30 MG TAB PO SCH (08:43)
[2017-03-26] MEDS: POLYETHYLENE GLYCOL 17 GM PACKET PO SCH (08:44)
[2017-03-26 08:46] VITALS: BP 144/63; PULSE 66; RESP 18
--- NOTE | 2017-03-26 10:33 | DS ---
Date/Time of Note Date/Time of Note DATE: 03/26/17 TIME: 10:32 Discharge Summary Admission/Discharge Info Admit Date/Time Mar 20, 2017 at 14:25 Discharge Date/Time Discharge Diagnosis 1. Left thalamic intracerebral hemorrhage. 2. Expressive aphasia. 3. Hypertension 4. Improvements in self-care, mobility and cognition. Patient Condition: Good Hospital Course DISCHARGE Patient was admitted for comprehensive interdisciplinary acute rehabilitation. Patient made steady functional gains and improved from a mod level to a Supervised level for self care and mobility, including ambulating over 150 feet with the use of a front wheeled walker. Patient is being discharged home with recommendations for home health PT and OT follow up. DME recommendations: FWW; BSC; Shower Chair Patient will follow up with PMD upon DC. Home Meds Reported Medications Ranolazine* (Ranexa*) 500 Mg Tab.sr.12h, 500 MG PO Q12, TAB 03/16/17 Carvedilol* (Carvedilol*) 3.125 Mg Tablet, 3.125 MG PO BID, #60 TAB 03/16/17 Isosorbide Mononitrate* (Isosorbide Mononitrate*) 30 Mg Tab.er.24h, 30 MG PO DAILY, TAB 03/16/17 Famotidine* (Famotidine*) 20 Mg Tablet, 20 MG PO DAILY, #30 TAB 03/16/17 Lorazepam* (Lorazepam*) 0.5 Mg Tablet, 0.5 MG PO BID Y for ANXIETY, TAB 03/16/17 Discontinued Reported Medications Ibuprofen* (Ibuprofen*) 600 Mg Tablet, 600 MG PO BID Y for PRN, TAB 03/16/17 Primary Care Provider Not On Staff Doctor ANTHONY LEE MD Mar 26, 2017 10:33
== END 2017-03-26 12:30 | disposition home health service (06) | DRG 57 ==
LOC: VRC 14:25
PROVIDERS: ADMIT Physical Medicine & Rehabilitation; ATTEND Internal Medicine Pulmonary Disease
PROC: F07Z5ZZ Bed Mobility Treatment (ICD-10-PCS; principal; 2017-03-20)
PROC: F08Z2ZZ Grooming/Personal Hygiene Treatment (ICD-10-PCS; 2017-03-20)
PROC: F06Z6ZZ Communicative/Cognitive Integration Skills Treatment (ICD-10-PCS; 2017-03-20)
DX: I69.120 Aphasia following nontraumatic intracerebral hemorrhage (principal); I12.9 Hypertensive chronic kidney disease with stage 1 through stage 4 chronic kidney disease, or unspecified chronic kidney disease; E78.5 Hyperlipidemia, unspecified; N18.9 Chronic kidney disease, unspecified
CPT/HCPCS: 80048; 80053; 81001; 83735; 84100; 85025; 87081; 87086; 92507; 92523; 92610; 97110; 97112; 97116; 97150; 97163; 97167; 97530; 97535